=== PATIENT | female | born 1985 | race Two or more races ===

== ENCOUNTER → 2021-01-22 | Outpatient (CLI) | payer BC ==
[2021-01-22 13:01] LABS: Basophils # (auto) 0 10 ^3/uL (0-0.2); Basophils % (auto) 0.3 % (0.0-2.0); Eosinophils # (auto) 0 10 ^3/uL (0-0.8); Eosinophils % (auto) 0.1 % (0.0-7.0); Hematocrit 38.3 % (36.0-46.0); Hemoglobin 13.1 g/dL (12.2-16.2); Lymphocytes # (auto) 1.1 10 ^3/uL (0.4-5.4); Lymphocytes % (auto) 12.7 % (10.0-50.0); Mean Corpuscular Hemoglobin 30.6 pg (28.0-32.0); Mean Corpuscular Hgb Conc. 34.3 g/dL (32.0-36.0); Mean Corpuscular Volume 89.4 fL (80.0-100.0); Monocytes # (auto) 0.5 10 ^3/uL (0-1.3); Monocytes % (auto) 5.2 % (0.0-12.0); Neutrophils # (auto) 7.3 10 ^3/uL (1.6-8.6); Neutrophils % (auto) 81.7 % (37.0-80.0); Nucleated Red Blood Cells % 0.2 %; Platelet Count (auto) 315 10^3/uL (140-450); Red Blood Cells 4.29 10^6/uL (4.0-5.20); Red Cell Distribution Width 13.1 % (11.8-14.3); White Blood Cell 8.9 10^3/uL (4.4-10.8)
[2021-01-22 13:21] LABS: Urine Bacteria FEW /hpf (None Seen); Urine Blood TRACE /uL (Negative); Urine Mucus FEW (None Seen); Urine WBC 1 /hpf (0 - 5)
[2021-01-22 14:44] LABS: Alcohol, Urine < 3.0 mg/dL (0-10); Amphetamine Screen, Urine NEGATIVE (NEGATIVE); Barbiturate Scree,Urine NEGATIVE (NEGATIVE); Benzodiazephine Screen, Urine NEGATIVE (NEGATIVE); Cannabinoid Screen, Urine NEGATIVE (NEGATIVE); Cocaine Screen, Urine NEGATIVE (NEGATIVE); Opiate Scree,Urine NEGATIVE (NEGATIVE); Phencyclidine Screen, Urine NEGATIVE (NEGATIVE)
[2021-01-23 08:07] LABS: RPR Non Reactive (Non Reactive)
== END | disposition home or self-care (01) ==
LOC: LAB 11:36
PROVIDERS: ATTEND Specialist
DX: O09.91 Supervision of high risk pregnancy, unspecified, first trimester (principal); Z31.430 Encounter of female for testing for genetic disease carrier status for procreative management; Z20.2 Contact with and (suspected) exposure to infections with a predominantly sexual mode of transmission; Z3A.11 11 weeks gestation of pregnancy
CPT/HCPCS: 36415; 80307; 81001; 81220; 83036; 84112; 84144; 84702; 85025; 86592; 86703; 86762; 86850; 86900; 86901; 87086; 87340

== ENCOUNTER 2021-02-03 10:49 | Emergency (ER) | payer BC, MEDICAID ==
[~2021-02-03] VITALS: Ht 165.1 cm; Wt 67.1 kg
[2021-02-03 10:52] VITALS: BP 101/56
== END 2021-02-03 12:23 | disposition home or self-care (01) ==
LOC: ER 10:49
DX: O20.0 Threatened abortion (principal); N83.202 Unspecified ovarian cyst, left side
CPT/HCPCS: 76801; 81002

== ENCOUNTER 2021-06-16 10:58 | Observation (INO) | payer MEDICAID ==
[2021-06-16] MEDS ORDERED: LACTATED RINGER'S 1,000 ML IV ONE (11:45)
[2021-06-16] MEDS ORDERED: ONDANSETRON HCL 4 MG/2 ML VIAL IV PRN (12:00)
[2021-06-16 12:27] LABS: Basophils # (auto) 0 10 ^3/uL (0-0.2); Basophils % (auto) 0.2 % (0.0-2.0); Eosinophils # (auto) 0 10 ^3/uL (0-0.8); Eosinophils % (auto) 0.3 % (0.0-7.0); Hematocrit 28.5 % (36.0-46.0); Hemoglobin 9.7 g/dL (12.2-16.2); Lymphocytes # (auto) 1.3 10 ^3/uL (0.4-5.4); Lymphocytes % (auto) 12.6 % (10.0-50.0); Mean Corpuscular Hemoglobin 29.1 pg (28.0-32.0); Mean Corpuscular Hgb Conc. 33.9 g/dL (32.0-36.0); Mean Corpuscular Volume 85.9 fL (80.0-100.0); Monocytes # (auto) 0.8 10 ^3/uL (0-1.3); Monocytes % (auto) 7.9 % (0.0-12.0); Neutrophils # (auto) 8.2 10 ^3/uL (1.6-8.6); Nucleated Red Blood Cells % 0.1 %; Red Blood Cells 3.32 10^6/uL (4.0-5.20); Red Cell Distribution Width 13.7 % (11.8-14.3); White Blood Cell 10.4 10^3/uL (4.4-10.8)
[2021-06-16 12:56] LABS: Albumin 2.3 g/dL (3.4-5.0); Calcium 8.8 mg/dL (8.5-10.1); Potassium 3.9 mmol/L (3.5-5.1)
[2021-06-16 12:58] LABS: BUN/Creatinine Ratio 18.2; Bilirubin, Total 0.2 mg/dL (0.2-1.0); Total Protein 6.5 g/dL (6.4-8.2)
== END 2021-06-16 13:21 | disposition home or self-care (01) ==
LOC: LDRP 10:58
PROVIDERS: ADMIT Obstetrics & Gynecology; ATTEND Obstetrics & Gynecology
DX: O36.8130 Decreased fetal movements, third trimester, not applicable or unspecified (principal); O21.2 Late vomiting of pregnancy; O99.891 Other specified diseases and conditions complicating pregnancy; M54.5 Low back pain; O26.893 Other specified pregnancy related conditions, third trimester; O62.9 Abnormality of forces of labor, unspecified; R51.9 Headache, unspecified; Z3A.32 32 weeks gestation of pregnancy
CPT/HCPCS: 36415; 59025; 80053; 81002; 85025; 87426; 94760; 96361; 96374; G0378; G0379; J2405; 96360

== ENCOUNTER 2021-07-11 12:30 | Observation (INO) | payer MEDICAID ==
[2021-07-11] MEDS ORDERED: LACTATED RINGER'S 1,000 ML IV ONE (14:45)
[2021-07-11] MEDS ORDERED: ONDANSETRON HCL 4 MG/2 ML VIAL IV ONE (14:45)
[2021-07-11 15:17] LABS: Albumin 2.6 g/dL (3.4-5.0); Calcium 8.9 mg/dL (8.5-10.1)
[2021-07-11 15:20] LABS: Bilirubin, Total 0.2 mg/dL (0.2-1.0); Total Protein 7.2 g/dL (6.4-8.2)
[2021-07-11 15:23] LABS: Basophils # (auto) 0 10 ^3/uL (0-0.2); Basophils % (auto) 0.3 % (0.0-2.0); Eosinophils # (auto) 0 10 ^3/uL (0-0.8); Eosinophils % (auto) 0.1 % (0.0-7.0); Hematocrit 30.8 % (36.0-46.0); Hemoglobin 10.2 g/dL (12.2-16.2); Lymphocytes # (auto) 1.4 10 ^3/uL (0.4-5.4); Lymphocytes % (auto) 13.3 % (10.0-50.0); Mean Corpuscular Hemoglobin 27.6 pg (28.0-32.0); Mean Corpuscular Hgb Conc. 33.1 g/dL (32.0-36.0); Mean Corpuscular Volume 83.5 fL (80.0-100.0); Monocytes # (auto) 0.7 10 ^3/uL (0-1.3); Neutrophils # (auto) 8.2 10 ^3/uL (1.6-8.6); Neutrophils % (auto) 79.3 % (37.0-80.0); Red Blood Cells 3.68 10^6/uL (4.0-5.20); Red Cell Distribution Width 14.8 % (11.8-14.3); White Blood Cell 10.3 10^3/uL (4.4-10.8)
[2021-07-11] MEDS ORDERED: FERR-20 PO (16:37)
[2021-07-11] MEDS ORDERED: FAMO20TA10 PO (16:37)
[2021-07-11] MEDS ORDERED: PREN-96 PO (16:37)
[2021-07-12] MEDS ORDERED: ALUM1SUS16 PO (14:55)
== END 2021-07-11 16:50 | disposition home or self-care (01) ==
LOC: LDRP 12:30
PROVIDERS: ADMIT Obstetrics & Gynecology; ATTEND Obstetrics & Gynecology
DX: O21.2 Late vomiting of pregnancy (principal); Z20.822 Contact with and (suspected) exposure to COVID-19; O62.9 Abnormality of forces of labor, unspecified; O26.893 Other specified pregnancy related conditions, third trimester; R19.7 Diarrhea, unspecified; R51.9 Headache, unspecified; Z3A.36 36 weeks gestation of pregnancy
CPT/HCPCS: 36415; 59025; 80053; 81002; 85025; 87426; 96361; 96374; G0378; J2405; 96360

== ENCOUNTER 2021-07-12 13:10 | Observation (INO) | payer MEDICAID ==
[~2021-07-12 13:10] MED LIST: FAMO20TA10 PO; FERR-20 PO; PREN-96 PO
[2021-07-12] MEDS ORDERED: ALUM1SUS16 PO (14:55)
== END 2021-07-12 15:17 | disposition home or self-care (01) ==
LOC: LDRP 13:10
PROVIDERS: ADMIT Obstetrics & Gynecology; ATTEND Obstetrics & Gynecology
DX: O62.9 Abnormality of forces of labor, unspecified (principal); O21.2 Late vomiting of pregnancy; Z3A.36 36 weeks gestation of pregnancy
CPT/HCPCS: 59025; 76818; 81002; 94760; G0378

== ENCOUNTER 2021-07-24 10:12 | Observation (INO) | payer MEDICAID ==
[~2021-07-24 10:12] MED LIST changes: +ALUM1SUS16 PO
== END 2021-07-24 11:43 | disposition home or self-care (01) ==
LOC: LDRP 10:12
PROVIDERS: ADMIT Obstetrics & Gynecology; ATTEND Obstetrics & Gynecology
DX: O62.9 Abnormality of forces of labor, unspecified (principal); O26.893 Other specified pregnancy related conditions, third trimester; R10.9 Unspecified abdominal pain; O21.2 Late vomiting of pregnancy; Z3A.38 38 weeks gestation of pregnancy
CPT/HCPCS: 59025; 81002; 94760; G0378

== ENCOUNTER 2021-07-25 22:19 | Observation (INO) | payer MEDICAID ==
[~2021-07-25] VITALS: Ht 165.1 cm; Wt 75.7 kg
== END 2021-07-25 23:25 | disposition home or self-care (01) ==
LOC: LDRP 22:19
PROVIDERS: ADMIT Obstetrics & Gynecology; ATTEND Obstetrics & Gynecology
DX: O62.9 Abnormality of forces of labor, unspecified (principal); Z3A.38 38 weeks gestation of pregnancy
CPT/HCPCS: 59025; 81002; G0378; G0379

== ENCOUNTER 2021-07-26 04:52 | Inpatient (IN) | payer MEDICAID ==
[~2021-07-26] VITALS: Ht 165.1 cm; Wt 75.7 kg
[2021-07-26] MEDS ORDERED: LACT. RINGERS/OXYTOCIN 20UNITS 500 ML IV ONE ×2 (06:00→22:30)
[2021-07-26] MEDS ORDERED: PROMETHAZINE HCL 25 MG/ML 1ML IV PRN (06:00)
[2021-07-26] MEDS ORDERED: DERMOPLAST 60ML BOTTLE TOP PRN (06:00)
[2021-07-26] MEDS ORDERED: TERBUTALINE SULFATE 1 MG/ML 1ML VIAL SC PRN (06:00)
[2021-07-26] MEDS ORDERED: LACT. RINGERS/OXYTOCIN 20UNITS 1,000 ML IV SCH (06:00)
[2021-07-26] MEDS ORDERED: LIDOCAINE 2%HCL (LOCAL ANESTH.) INJ 20ML MDV IJ PRN (06:00)
[2021-07-26] MEDS ORDERED: PHISODERM TOP SOLN 240ML BTL TOP PRN (06:00)
[2021-07-26] MEDS ORDERED: BUTORPHANOL TARTRATE 2 MG/1 ML VIAL IV PRN ×2 (06:00)
[2021-07-26] MEDS ORDERED: WITCH HAZEL-GLYCERIN PAD TOP PRN (06:00)
[2021-07-26] MEDS: LACTATED RINGER'S 1,000 ML IV SCH ×2 (07:12→20:11)
[2021-07-26 07:27] LABS: Basophils # (auto) 0 10 ^3/uL (0-0.2); Basophils % (auto) 0.2 % (0.0-2.0); Eosinophils # (auto) 0 10 ^3/uL (0-0.8); Hematocrit 32.7 % (36.0-46.0); Hemoglobin 10.6 g/dL (12.2-16.2); Lymphocytes # (auto) 0.6 10 ^3/uL (0.4-5.4); Lymphocytes % (auto) 4.1 % (10.0-50.0); Mean Corpuscular Hemoglobin 27.1 pg (28.0-32.0); Mean Corpuscular Hgb Conc. 32.5 g/dL (32.0-36.0); Mean Corpuscular Volume 83.4 fL (80.0-100.0); Monocytes # (auto) 0.3 10 ^3/uL (0-1.3); Monocytes % (auto) 2.2 % (0.0-12.0); Neutrophils # (auto) 14.2 10 ^3/uL (1.6-8.6); Neutrophils % (auto) 93.5 % (37.0-80.0); Nucleated Red Blood Cells % 0.1 %; Red Blood Cells 3.92 10^6/uL (4.0-5.20); Red Cell Distribution Width 15.9 % (11.8-14.3); White Blood Cell 15.1 10^3/uL (4.4-10.8)
[2021-07-26 07:30] LABS: Urine Bacteria NONE SEEN /hpf (None Seen); Urine Blood 3+ /uL (Negative); Urine Mucus FEW (None Seen); Urine Specific Gravity 1.019 (1.001-1.035)
[2021-07-26 07:45] LABS: INR 0.97 (0.9-1.15); Partial Thromboplastin Time 26.4 sec (23.6-33.0)
[2021-07-26 07:48] LABS: Albumin 2.6 g/dL (3.4-5.0); Calcium 8.8 mg/dL (8.5-10.1); Potassium 3.7 mmol/L (3.5-5.1)
[2021-07-26 07:52] LABS: Urine WBC 2 /hpf (0 - 5)
[2021-07-26 07:53] LABS: Bilirubin, Total 0.3 mg/dL (0.2-1.0); Total Protein 6.9 g/dL (6.4-8.2)
[2021-07-26 07:54] LABS: Alcohol, Urine < 3.0 mg/dL (0-10); Amphetamine Screen, Urine NEGATIVE (NEGATIVE); Barbiturate Scree,Urine NEGATIVE (NEGATIVE); Benzodiazephine Screen, Urine NEGATIVE (NEGATIVE); Cannabinoid Screen, Urine NEGATIVE (NEGATIVE); Cocaine Screen, Urine NEGATIVE (NEGATIVE); Opiate Scree,Urine NEGATIVE (NEGATIVE); Phencyclidine Screen, Urine NEGATIVE (NEGATIVE)
[2021-07-26] MEDS ORDERED: LACTATED RINGER'S 1,000 ML IV ONE (08:30)
[2021-07-26] MEDS ORDERED: NALOXONE HCL 0.4 MG/ML VIAL IV ONE (08:30)
[2021-07-26] MEDS ORDERED: ROPIVACAINE HCL 200 ML EPI SCH (08:30)
[2021-07-26] MEDS ORDERED: LIDOCAINE HCL 2 %PF INJ 10ML AMP IJ ONE (08:30)
[2021-07-26] MEDS ORDERED: ePHEDrine SULFATE 50 MG/ML AMP IV ONE (08:30)
[2021-07-26] MEDS ORDERED: fentaNYL CITRATE 100 MCG/2 ML VL IV ONE (08:30)
[2021-07-26] MEDS ORDERED: ceFAZolin 1GM/50ML 50 ML IV SCH (14:00)
[2021-07-26] MEDS ORDERED: ACETAMINOPHEN 325 MG TAB PO PRN (22:45)
[2021-07-26] MEDS ORDERED: IBUPROFEN 800 MG TAB PO PRN (22:45)
[2021-07-26] MEDS: IBUPROFEN 600 MG TAB PO PRN (23:09)
[2021-07-27 03:20] VITALS: BP 98/59
[2021-07-27 06:06] LABS: RPR Non Reactive (Non Reactive)
[2021-07-27 07:00] VITALS: BP 97/55
[2021-07-27] MEDS: IBUPROFEN 600 MG TAB PO PRN ×2 (07:37→18:58)
[2021-07-27 11:00] VITALS: BP 96/57
[2021-07-27 15:00] VITALS: BP 100/60
[2021-07-27] MEDS ORDERED: CALCIUM CARB 500 MG CHEW TAB PO ONE (17:00)
[2021-07-27 19:00] VITALS: BP 114/71
[2021-07-27 23:00] VITALS: BP 119/68
[2021-07-28 03:00] VITALS: BP 111/76
[2021-07-28] MEDS ORDERED: CALCIUM CARB 500 MG CHEW TAB PO ONE (04:45)
[2021-07-28 07:30] VITALS: BP 110/78
[2021-07-28 11:00] VITALS: BP 107/68
[2021-07-28 18:40] VITALS: BP 111/63
[2021-07-28 19:50] VITALS: BP 102/58
== END 2021-07-28 20:10 | disposition home or self-care (01) | DRG 560 ==
LOC: LDRP 04:52 → OBSVTOIN 05:54 → LDRP 06:16
PROVIDERS: ADMIT Obstetrics & Gynecology; ATTEND Obstetrics & Gynecology
PROC: 10E0XZZ Delivery of Products of Conception, External Approach (ICD-10-PCS; principal; 2021-07-26)
PROC: 3E0R3BZ Introduction of Anesthetic Agent into Spinal Canal, Percutaneous Approach (ICD-10-PCS; 2021-07-26)
PROC: 00HU33Z Insertion of Infusion Device into Spinal Canal, Percutaneous Approach (ICD-10-PCS; 2021-07-26)
PROC: 0W8NXZZ Division of Female Perineum, External Approach (ICD-10-PCS; 2021-07-26)
DX: O69.81X0 Labor and delivery complicated by cord around neck, without compression, not applicable or unspecified (principal); Z37.0 Single live birth; O76 Abnormality in fetal heart rate and rhythm complicating labor and delivery; Z20.822 Contact with and (suspected) exposure to COVID-19; Z3A.38 38 weeks gestation of pregnancy
CPT/HCPCS: 36415; 59025; 59409; 62282; 80053; 80307; 81001; 81002; 84112; 85025; 85610; 85730; 86592; 86850; 86900; 86901; 87426; 94760; 94762; 96360; 96361; 96365; 96366; 96374; 96375; G0378; J0690; J2590

== ENCOUNTER 2022-01-21 06:29 | Emergency (ER) | payer MEDICAID ==
[~2022-01-21] VITALS: Ht 165.1 cm; Wt 72.6 kg
[2022-01-21 07:10] LABS: Basophils # (auto) 0.1 10 ^3/uL (0-0.2); Basophils % (auto) 0.8 % (0.0-2.0); Eosinophils # (auto) 0 10 ^3/uL (0-0.8); Eosinophils % (auto) 0.4 % (0.0-7.0); Lymphocytes # (auto) 1.3 10 ^3/uL (0.4-5.4); Lymphocytes % (auto) 19.1 % (10.0-50.0); Mean Corpuscular Hemoglobin 27.6 pg (28.0-32.0); Mean Corpuscular Hgb Conc. 33.3 g/dL (32.0-36.0); Mean Corpuscular Volume 82.8 fL (80.0-100.0); Monocytes # (auto) 0.3 10 ^3/uL (0-1.3); Monocytes % (auto) 4.7 % (0.0-12.0); Neutrophils # (auto) 4.9 10 ^3/uL (1.6-8.6); Red Blood Cells 4.34 10^6/uL (4.0-5.20); Red Cell Distribution Width 13.9 % (11.8-14.3); White Blood Cell 6.6 10^3/uL (4.4-10.8)
[2022-01-21 07:29] LABS: Albumin 3.8 g/dL (3.4-5.0); Calcium 8.8 mg/dL (8.5-10.1); Potassium 3.7 mmol/L (3.5-5.1)
[2022-01-21 07:31] LABS: Bilirubin, Total 0.2 mg/dL (0.2-1.0); Total Protein 7.8 g/dL (6.4-8.2)
[2022-01-21 07:51] LABS: Urine Bacteria NONE SEEN /hpf (None Seen); Urine Blood Negative /uL (Negative); Urine Specific Gravity 1.004 (1.001-1.035); Urine WBC 13 /hpf (0 - 5)
[2022-01-21 10:19] VITALS: BP 113/75
== END 2022-01-21 11:42 | disposition left against medical advice (07) ==
LOC: EDUNIT# 06:29 → ER 06:29
DX: K80.80 Other cholelithiasis without obstruction (principal); Z79.899 Other long term (current) drug therapy; Z91.018 Allergy to other foods
CPT/HCPCS: 36415; 74176; 80053; 81001; 83690; 84702; 85025

== ENCOUNTER 2023-09-03 17:31 | Inpatient (IN) | payer SELFPAY ==
[~2023-09-03] VITALS: Ht 165.1 cm; Wt 65.4 kg
[~2023-09-03 17:31] MED LIST changes: -FERR-20 PO; +FERR325T24 PO
[2023-09-03] MEDS ORDERED: ACETAMINOPHEN 500 MG TAB PO ONE ×2 (18:00→21:45)
[2023-09-03 18:08] VITALS: PULSE 120; RESP 16; O2SAT 100
[2023-09-03 18:08] LABS: Basophils # (auto) 0 10 ^3/uL (0-0.2); Basophils % (auto) 0.3 % (0.0-2.0); Eosinophils # (auto) 0 10 ^3/uL (0-0.8); Hematocrit 37.4 % (36.0-46.0); Hemoglobin 12.5 g/dL (12.2-16.2); Lymphocytes # (auto) 0.8 10 ^3/uL (0.4-5.4); Lymphocytes % (auto) 7.7 % (10.0-50.0); Mean Corpuscular Hemoglobin 27.8 pg (28.0-32.0); Mean Corpuscular Hgb Conc. 33.4 g/dL (32.0-36.0); Mean Corpuscular Volume 83.4 fL (80.0-100.0); Monocytes # (auto) 0.7 10 ^3/uL (0-1.3); Monocytes % (auto) 6.6 % (0.0-12.0); Neutrophils % (auto) 85.4 % (37.0-80.0); Red Blood Cells 4.49 10^6/uL (4.0-5.20); Red Cell Distribution Width 15.2 % (11.8-14.3); White Blood Cell 10.6 10^3/uL (4.4-10.8)
[2023-09-03] MEDS ORDERED: SODIUM CHLORIDE 0.9% 1,000 ML IV ONE ×2 (18:15→18:30)
[2023-09-03 18:24] LABS: INR 1.14 (0.9-1.15); Partial Thromboplastin Time 31.7 SEC (24.5-34.5); Prothrombin Time 11.9 sec (9.3-11.8)
[2023-09-03 18:30] LABS: Alanine Aminotransferase 16 U/L (7-40); Albumin 4.9 g/dL (3.2-4.8); Alkaline Phosphatase 67 U/L (46-116); Anion Gap 9 (5-15); Aspartate Aminotransferase 16 U/L (13-40); BUN/Creatinine Ratio 15.1 (10.0-20.0); Blood Urea Nitrogen 13 mg/dL (9-23); Calcium 9.7 mg/dL (8.5-10.1); Carbon Dioxide 25 mmol/L (20-30); Chloride 105 mmol/L (98-107); Glucose 98 mg/dL (74-106); Potassium 3.7 mmol/L (3.5-5.1); Sodium 139 mmol/L (136-145)
[2023-09-03] MEDS ORDERED: cefTRIAXone 1GM/50ML D5W 50 ML IV ONE (18:30)
[2023-09-03] MEDS ORDERED: DexAMETHasone SOD PHOS 10MG/1ML VIAL INJ IV ONE (18:30)
[2023-09-03 18:31] LABS: Bilirubin, Total 0.4 mg/dL (0.2-1.0); Total Protein 7.9 g/dL (5.7-8.2)
[2023-09-03 20:00] VITALS: PULSE 111; RESP 13; O2SAT 96
[2023-09-03 22:36] LABS: Urine WBC None Seen /hpf (0 - 5)
[2023-09-03 22:57] LABS: COVID19 ANTIGEN SOFIA FIA POSITIVE (NEGATIVE)
[2023-09-03 23:04] LABS: Urine Bacteria FEW /hpf (None Seen); Urine Blood Negative /uL (Negative); Urine Clarity Clear (Clear); Urine Color Colorless (Yellow); Urine Protein, UAD Negative (Negative); Urine Specific Gravity 1.009 (1.001-1.035); Urine Urobilinogen Normal (Negative)
[2023-09-04] MEDS ORDERED: NITROGLYCERIN 0.4 MG SL TAB SL PRN (01:00)
[2023-09-04] MEDS ORDERED: ACETAMINOPHEN 500 MG TAB PO PRN (01:00)
[2023-09-04] MEDS ORDERED: MORPHINE SULFATE INJ 2 MG/ml SYRG IV PRN (01:00)
[2023-09-04] MEDS ORDERED: TEMAZEPAM 15 MG CAP PO PRN (01:00)
[2023-09-04] MEDS ORDERED: ALBUTEROL MEDNEB 2.5 mg/3ml NEB NEB PRN (01:00)
[2023-09-04] MEDS ORDERED: ONDANSETRON HCL 4 MG/2 ML VIAL IV PRN (01:00)
[2023-09-04 01:05] VITALS: BP 116/83; PULSE 90; RESP 20; TEMP 98.6; O2SAT 97
[2023-09-04 06:56] VITALS: O2SAT 97
[2023-09-04 08:00] VITALS: PULSE 80; RESP 14; O2SAT 98
[2023-09-04] MEDS ORDERED: CHOLECALCIFEROL (VITD3) 2,000 UNIT CAP/TAB PO SCH (10:00)
[2023-09-04] MEDS ORDERED: ASCORBIC ACID 1,000 MG TAB PO SCH (10:00)
[2023-09-04] MEDS ORDERED: AZITHROMYCIN 500MG/ 250ML 250 ML IV SCH (10:00)
[2023-09-04] MEDS ORDERED: ZINC SULFATE 220mg CAP or TAB PO SCH (10:00)
[2023-09-04 12:00] VITALS: BP 114/68; PULSE 87; RESP 14; TEMP 99.4; O2SAT 96
[2023-09-04] MEDS ORDERED: ALBUTEROL SULF HFA 90MCG INH 200DOSE IN SCH (14:00)
== END 2023-09-04 12:05 | disposition home or self-care (01) | DRG 179 ==
LOC: ER 17:31 → TELE 09-04 00:55
PROVIDERS: ADMIT Internal Medicine Pulmonary Disease; ATTEND Student in an Organized Health Care Education/Training Program
DX: U07.1 COVID-19 (principal); R00.0 Tachycardia, unspecified
CPT/HCPCS: 36415; 71045; 80053; 81001; 82728; 83605; 83735; 83880; 84443; 84484; 84702; 85025; 85379; 85610; 85730; 86141; 87040; 87426; 93005; G0378; J0696; J1100

== ENCOUNTER 2024-02-13 16:19 | Emergency (ER) | payer MEDICAID, SELFPAY ==
[~2024-02-13] VITALS: Ht 165.1 cm; Wt 64.9 kg
[2024-02-13 16:38] LABS: Urine Bacteria None Seen /hpf (None Seen)
[2024-02-13 17:01] LABS: Urine Blood 2+ /uL (Negative); Urine Clarity Clear (Clear); Urine Color Colorless (Yellow); Urine Protein, UAD Negative (Negative); Urine Specific Gravity 1.002 (1.001-1.035); Urine Urobilinogen Normal (Negative); Urine WBC <1 /hpf (0 - 5); Urine pH 5.5 (5.0-9.0)
[2024-02-13] MEDS: MECLIZINE HCL 25 MG TAB PO ONE (17:01)
[2024-02-13] MEDS: ONDANSETRON ODT 4 MG TAB PO ONE (17:01)
[2024-02-13 17:02] VITALS: BP 122/67; PULSE 93; RESP 18; TEMP 98.6; O2SAT 98
[2024-02-13 17:16] LABS: Basophils # (auto) 0 10 ^3/uL (0-0.2); Basophils % (auto) 0.8 % (0.0-2.0); Eosinophils # (auto) 0 10 ^3/uL (0-0.8); Eosinophils % (auto) 0.8 % (0.0-7.0); Hematocrit 37.2 % (36.0-46.0); Hemoglobin 12.3 g/dL (12.2-16.2); Lymphocytes # (auto) 1.3 10 ^3/uL (0.4-5.4); Lymphocytes % (auto) 24.1 % (10.0-50.0); Mean Corpuscular Hemoglobin 28.2 pg (28.0-32.0); Mean Corpuscular Hgb Conc. 33.2 g/dL (32.0-36.0); Mean Corpuscular Volume 85.1 fL (80.0-100.0); Monocytes # (auto) 0.5 10 ^3/uL (0-1.3); Neutrophils # (auto) 3.5 10 ^3/uL (1.6-8.6); Neutrophils % (auto) 64.3 % (37.0-80.0); Nucleated Red Blood Cells % 0.1 %; Red Blood Cells 4.37 10^6/uL (4.0-5.20); Red Cell Distribution Width 14.9 % (11.8-14.3); White Blood Cell 5.5 10^3/uL (4.4-10.8)
[2024-02-13 17:35] LABS: Alanine Aminotransferase 12 U/L (7-40); Albumin 4.6 g/dL (3.2-4.8); Alkaline Phosphatase 58 U/L (46-116); Anion Gap 9 (5-15); Aspartate Aminotransferase 11 U/L (13-40); Blood Urea Nitrogen 8 mg/dL (9-23); Calcium 9.8 mg/dL (8.7-10.4); Carbon Dioxide 25 mmol/L (20-30); Chloride 105 mmol/L (98-107); Glucose 91 mg/dL (74-106); Lipase 38 U/L (12-53); Potassium 3.4 mmol/L (3.5-5.1); Sodium 139 mmol/L (136-145)
[2024-02-13 17:36] LABS: Bilirubin, Total 0.4 mg/dL (0.2-1.0)
[2024-02-13] MEDS ORDERED: ZOFR4T PO (18:25)
[2024-02-13] MEDS ORDERED: DICY10CA PO (18:25)
[2024-02-13] MEDS ORDERED: MECL1TAB42 PO (18:25)
== END 2024-02-13 18:31 | disposition home or self-care (01) ==
LOC: ER 16:19
DX: K52.9 Noninfective gastroenteritis and colitis, unspecified (principal); Z91.018 Allergy to other foods
CPT/HCPCS: 36415; 74176; 80053; 81001; 81025; 83690; 85025; 99284; J8597; Q0162

== ENCOUNTER 2024-05-14 17:37 | Inpatient (IN) | payer SELFPAY ==
[~2024-05-14] VITALS: Ht 165.1 cm; Wt 69.7 kg
[~2024-05-14 17:37] MED LIST changes: +DICY10CA PO; +MECL1TAB42 PO; +ZOFR4T PO
[2024-05-14 18:32] LABS: Alanine Aminotransferase 19 U/L (7-40); Albumin 4.7 g/dL (3.2-4.8); Alkaline Phosphatase 59 U/L (46-116); Anion Gap 10 (5-15); Aspartate Aminotransferase 10 U/L (13-40); BUN/Creatinine Ratio 9.8 (10.0-20.0); Blood Urea Nitrogen 8 mg/dL (9-23); Calcium 10.1 mg/dL (8.7-10.4); Carbon Dioxide 24 mmol/L (20-30); Chloride 105 mmol/L (98-107); Glucose 148 mg/dL (74-106); Magnesium 1.6 mg/dL (1.6-2.6); Sodium 139 mmol/L (136-145)
[2024-05-14 18:33] LABS: Bilirubin, Total 0.4 mg/dL (0.2-1.0); Total Protein 7.5 g/dL (5.7-8.2)
[2024-05-14 18:40] LABS: Basophils # (auto) 0 10 ^3/uL (0-0.2); Basophils % (auto) 0.3 % (0.0-2.0); Eosinophils # (auto) 0 10 ^3/uL (0-0.8); Eosinophils % (auto) 0.2 % (0.0-7.0); Hematocrit 37.3 % (36.0-46.0); Hemoglobin 12.6 g/dL (12.2-16.2); Lymphocytes # (auto) 1.7 10 ^3/uL (0.4-5.4); Lymphocytes % (auto) 25.1 % (10.0-50.0); Mean Corpuscular Hemoglobin 28.6 pg (28.0-32.0); Mean Corpuscular Hgb Conc. 33.9 g/dL (32.0-36.0); Mean Corpuscular Volume 84.3 fL (80.0-100.0); Monocytes # (auto) 0.4 10 ^3/uL (0-1.3); Monocytes % (auto) 6.6 % (0.0-12.0); Neutrophils # (auto) 4.5 10 ^3/uL (1.6-8.6); Neutrophils % (auto) 67.8 % (37.0-80.0); Nucleated Red Blood Cells % 0.2 %; Red Blood Cells 4.42 10^6/uL (4.0-5.20); Red Cell Distribution Width 14.2 % (11.8-14.3); White Blood Cell 6.7 10^3/uL (4.4-10.8)
[2024-05-14] MEDS: SODIUM CHLORIDE 0.9% 1,000 ML IV ONE (19:20)
[2024-05-14] MEDS: ONDANSETRON HCL 4 MG/2 ML VIAL IV ONE (20:00)
[2024-05-14] MEDS: KETOROLAC TROMETH 30 MG/ML 1ML VIAL IV ONE (20:01)
[2024-05-14] MEDS: PANTOPRAZOLE 40 MG/10 ML VIAL INJ IV ONE (20:05)
[2024-05-14 20:20] LABS: Urine Bacteria FEW /hpf (None Seen); Urine Blood TRACE /uL (Negative); Urine Clarity Clear (Clear); Urine Color Colorless (Yellow); Urine Protein, UAD Negative (Negative); Urine Specific Gravity 1.004 (1.001-1.035); Urine Urobilinogen Normal (Negative); Urine WBC 1 /hpf (0 - 5)
[2024-05-14] MEDS: METOCLOPRAMIDE HCL 5MG/ml INJ 2ml VIAL IV ONE ×2 (21:03→21:24)
[2024-05-14] MEDS: IOHEXOL 350 MG/ML 100ML IJ ONE (22:11)
[2024-05-15] MEDS ORDERED: ONDANSETRON HCL 4 MG/2 ML VIAL IV PRN (02:15)
[2024-05-15] MEDS ORDERED: HYDROcodone-ACET 5/325MG TAB PO PRN (02:15)
[2024-05-15] MEDS ORDERED: HEPARIN DRIP/D5W 100UNITS/ML 250 ML IV SCH (02:30)
[2024-05-15] MEDS ORDERED: MORPHINE SULFATE INJ 2 MG/ml SYRG IV PRN (03:15)
[2024-05-15] MEDS ORDERED: NITROGLYCERIN 0.4 MG SL TAB SL PRN (03:15)
[2024-05-15 04:18] LABS: Basophils # (auto) 0 10 ^3/uL (0-0.2); Basophils % (auto) 0.7 % (0.0-2.0); Eosinophils # (auto) 0 10 ^3/uL (0-0.8); Eosinophils % (auto) 0.2 % (0.0-7.0); Hematocrit 35.7 % (36.0-46.0); Hemoglobin 12.3 g/dL (12.2-16.2); Lymphocytes # (auto) 1.5 10 ^3/uL (0.4-5.4); Mean Corpuscular Hemoglobin 29.3 pg (28.0-32.0); Mean Corpuscular Hgb Conc. 34.6 g/dL (32.0-36.0); Mean Corpuscular Volume 84.7 fL (80.0-100.0); Monocytes # (auto) 0.7 10 ^3/uL (0-1.3); Monocytes % (auto) 11.6 % (0.0-12.0); Neutrophils # (auto) 3.9 10 ^3/uL (1.6-8.6); Neutrophils % (auto) 63.5 % (37.0-80.0); Red Blood Cells 4.22 10^6/uL (4.0-5.20); Red Cell Distribution Width 13.8 % (11.8-14.3); White Blood Cell 6.1 10^3/uL (4.4-10.8)
[2024-05-15 04:31] LABS: Alanine Aminotransferase 17 U/L (7-40); Albumin 4.5 g/dL (3.2-4.8); Alkaline Phosphatase 54 U/L (46-116); Anion Gap 8 (5-15); Aspartate Aminotransferase 11 U/L (13-40); BUN/Creatinine Ratio 8.5 (10.0-20.0); Bilirubin, Total 0.5 mg/dL (0.2-1.0); Blood Urea Nitrogen 6 mg/dL (9-23); Calcium 9.4 mg/dL (8.7-10.4); Carbon Dioxide 26 mmol/L (20-30); Chloride 104 mmol/L (98-107); Glucose 100 mg/dL (74-106); Potassium 3.2 mmol/L (3.5-5.1); Sodium 138 mmol/L (136-145); Total Protein 7.7 g/dL (5.7-8.2)
[2024-05-15 04:39] LABS: INR 1.1 (0.9-1.15); Partial Thromboplastin Time 28.8 SEC (24.5-34.5); Prothrombin Time 11.6 sec (9.3-11.8)
[2024-05-15 06:00] VITALS: PULSE 76; RESP 13; O2SAT 100
[2024-05-15] MEDS: POTASSIUM CHL 20MEQ/100ML 100 ML IV SCH (06:11)
[2024-05-15] MEDS: HEPARIN SODIUM (PORCINE) 5000 UNITS/ML 1ML VIAL IV ONE (07:06)
[2024-05-15] MEDS: HEPARIN DRIP/D5W 100UNITS/ML 250 ML IV SCH ×2 (07:13→15:18)
[2024-05-15 07:44] VITALS: PULSE 62; RESP 16; O2SAT 96
[2024-05-15] MEDS: PANTOPRAZOLE 40 MG/10 ML VIAL INJ IV SCH (08:57)
[2024-05-15] MEDS: POTASSIUM CHL 20MEQ/100ML 100 ML IV ONE (09:01)
[2024-05-15] MEDS: SODIUM CHLORIDE 0.9% 1,000 ML IV SCH (09:02)
[2024-05-15 13:48] LABS: INR 1.17 (0.9-1.15); Prothrombin Time 12.3 sec (9.3-11.8)
[2024-05-15 14:00] LABS: Partial Thromboplastin Time > 139.0 SEC (24.5-34.5)
[2024-05-15 16:25] VITALS: BP 126/79; PULSE 74; PULSE 95; RESP 18; RESP 20; TEMP 98.4; O2SAT 99
[2024-05-15 16:43] VITALS: BP 126/79; PULSE 74; RESP 20; TEMP 98.3; O2SAT 99
[2024-05-15] MEDS: ACETAMINOPHEN 325 MG TAB PO PRN (18:41)
[2024-05-15 20:00] VITALS: PULSE 79
[2024-05-15 21:00] VITALS: BP 125/78; PULSE 77; RESP 19; TEMP 97.5; O2SAT 98
[2024-05-15 21:57] LABS: INR 1.16 (0.9-1.15); Prothrombin Time 12.2 sec (9.3-11.8)
[2024-05-15 22:07] LABS: Partial Thromboplastin Time 78.9 SEC (24.5-34.5)
[2024-05-16] VITALS (8 sets, daily range): BP systolic 118–130; BP diastolic 69–76; PULSE 16–90; RESP 18–20; TEMP 97.5–98.6; O2SAT 97–99
[2024-05-16 06:07] LABS: Basophils # (auto) 0 10 ^3/uL (0-0.2); Basophils % (auto) 1.1 % (0.0-2.0); Eosinophils # (auto) 0.1 10 ^3/uL (0-0.8); Eosinophils % (auto) 1.5 % (0.0-7.0); Hematocrit 34.5 % (36.0-46.0); Hemoglobin 11.9 g/dL (12.2-16.2); Lymphocytes # (auto) 1.3 10 ^3/uL (0.4-5.4); Lymphocytes % (auto) 32.3 % (10.0-50.0); Mean Corpuscular Hemoglobin 29.4 pg (28.0-32.0); Mean Corpuscular Hgb Conc. 34.4 g/dL (32.0-36.0); Mean Corpuscular Volume 85.5 fL (80.0-100.0); Monocytes # (auto) 0.5 10 ^3/uL (0-1.3); Monocytes % (auto) 13.6 % (0.0-12.0); Neutrophils % (auto) 51.5 % (37.0-80.0); Nucleated Red Blood Cells % 0.1 %; Red Blood Cells 4.04 10^6/uL (4.0-5.20); White Blood Cell 3.9 10^3/uL (4.4-10.8)
[2024-05-16 06:22] LABS: Alanine Aminotransferase 13 U/L (7-40); Alkaline Phosphatase 46 U/L (46-116); Anion Gap 9 (5-15); BUN/Creatinine Ratio 7.7 (10.0-20.0); Blood Urea Nitrogen 5 mg/dL (9-23); Carbon Dioxide 25 mmol/L (20-30); Chloride 105 mmol/L (98-107); Glucose 81 mg/dL (74-106); Potassium 3.3 mmol/L (3.5-5.1); Sodium 139 mmol/L (136-145)
[2024-05-16 06:24] LABS: Albumin 3.8 g/dL (3.2-4.8); Aspartate Aminotransferase 9 U/L (13-40); Bilirubin, Total 0.5 mg/dL (0.2-1.0); Total Protein 6.6 g/dL (5.7-8.2)
[2024-05-16 06:33] LABS: INR 1.15 (0.9-1.15); Prothrombin Time 12.1 sec (9.3-11.8)
[2024-05-16 06:34] LABS: Partial Thromboplastin Time 85.5 SEC (24.5-34.5)
[2024-05-16] MEDS: HEPARIN DRIP/D5W 100UNITS/ML 250 ML IV SCH ×2 (06:55→15:05)
[2024-05-16] MEDS: POTASSIUM CHL 20 Meq TABLET PO ONE (12:28)
[2024-05-16 14:02] LABS: INR 1.11 (0.9-1.15); Partial Thromboplastin Time 41.7 SEC (24.5-34.5); Prothrombin Time 11.7 sec (9.3-11.8)
[2024-05-16 21:31] LABS: INR 1.13 (0.9-1.15); Partial Thromboplastin Time 48.7 SEC (24.5-34.5); Prothrombin Time 11.9 sec (9.3-11.8)
[2024-05-17] VITALS (8 sets, daily range): BP systolic 112–138; BP diastolic 65–83; PULSE 69–114; RESP 16–18; TEMP 98–98.3; O2SAT 95–99
[2024-05-17] MEDS: METOCLOPRAMIDE HCL 5MG/ml INJ 2ml VIAL IV PRN (00:55)
[2024-05-17 05:36] LABS: INR 1.14 (0.9-1.15)
[2024-05-17] MEDS: DOCUSATE SOD 100 MG CAP PO PRN (08:47)
[2024-05-17 09:40] LABS: Amphetamine Screen, Urine Neg (NEGATIVE); Barbiturate Scree,Urine Neg (NEGATIVE); Benzodiazephine Screen, Urine Neg (NEGATIVE); Cocaine Screen, Urine Neg (NEGATIVE); Opiate Scree,Urine Neg (NEGATIVE)
[2024-05-17 09:41] LABS: Cannabinoid Screen, Urine Neg (NEGATIVE); Phencyclidine Screen, Urine Neg (NEGATIVE)
[2024-05-17 11:10] LABS: INR 1.11 (0.9-1.15); Partial Thromboplastin Time 69.2 SEC (24.5-34.5); Prothrombin Time 11.7 sec (9.3-11.8)
[2024-05-18 01:00] VITALS: BP 101/65; PULSE 77; RESP 16; TEMP 98.2; O2SAT 96
[2024-05-18 05:00] VITALS: BP 113/72; PULSE 87; RESP 17; TEMP 98.3; O2SAT 98
[2024-05-18 08:00] VITALS: PULSE 80; PULSE 92; RESP 18; O2SAT 98
[2024-05-18 09:00] VITALS: BP 102/62; PULSE 80; RESP 16; TEMP 97.8; O2SAT 65; O2SAT 95
[2024-05-18 13:00] VITALS: BP 116/76; PULSE 84; RESP 14; TEMP 97.8; O2SAT 100
[2024-05-18] MEDS ORDERED: PANT40T PO (13:09)
[2024-05-18 14:25] VITALS: BP 107/62; PULSE 80; RESP 14; TEMP 97.8; O2SAT 98
== END 2024-05-18 15:35 | disposition home or self-care (01) | DRG 641 ==
LOC: ER 17:37 → TELE 05-15 03:09 → TELE-WESTW 05-15 16:30
PROVIDERS: ADMIT Family Medicine; ATTEND Family Medicine
DX: E87.6 Hypokalemia (principal); R00.2 Palpitations; G89.29 Other chronic pain; E83.42 Hypomagnesemia
CPT/HCPCS: 36415; 71045; 78582; 80053; 80307; 81001; 81025; 83735; 84443; 84484; 85025; 85379; 85610; 85730; 93005; 93306; 93970; 96361; 96365; 96375; G0378; J1885; J2405; J2470; J3480

== ENCOUNTER 2024-05-19 15:52 | Emergency (ER) | payer SELFPAY ==
[~2024-05-19] VITALS: Ht 165.1 cm; Wt 64.3 kg
[~2024-05-19 15:52] MED LIST changes: +PANT40T PO
[2024-05-19 17:47] VITALS: PULSE 70; RESP 14; O2SAT 95
[2024-05-19 18:00] LABS: Urine Bacteria FEW /hpf (None Seen); Urine Blood TRACE /uL (Negative); Urine Clarity Clear (Clear); Urine Color Light-Yellow (Yellow); Urine Protein, UAD Negative (Negative); Urine Specific Gravity 1.008 (1.001-1.035); Urine Urobilinogen Normal (Negative); Urine WBC 2 /hpf (0 - 5)
[2024-05-19] MEDS: MECLIZINE HCL 25 MG TAB PO ONE (18:31)
[2024-05-19] MEDS: LORazepam 2MG/ML-1ML VIAL IV ONE (18:32)
[2024-05-19] MEDS: ONDANSETRON HCL 4 MG/2 ML VIAL IV ONE (18:32)
[2024-05-19] MEDS: SODIUM CHLORIDE 0.9% 1,000 ML IV ONE (18:32)
[2024-05-19 18:41] LABS: Basophils # (auto) 0 10 ^3/uL (0-0.2); Basophils % (auto) 0.6 % (0.0-2.0); Eosinophils # (auto) 0 10 ^3/uL (0-0.8); Eosinophils % (auto) 0.2 % (0.0-7.0); Hematocrit 39.7 % (36.0-46.0); Hemoglobin 13.4 g/dL (12.2-16.2); Lymphocytes # (auto) 0.9 10 ^3/uL (0.4-5.4); Lymphocytes % (auto) 19.8 % (10.0-50.0); Mean Corpuscular Hemoglobin 28.6 pg (28.0-32.0); Mean Corpuscular Hgb Conc. 33.8 g/dL (32.0-36.0); Mean Corpuscular Volume 84.7 fL (80.0-100.0); Monocytes # (auto) 0.6 10 ^3/uL (0-1.3); Monocytes % (auto) 12.5 % (0.0-12.0); Neutrophils # (auto) 3.1 10 ^3/uL (1.6-8.6); Neutrophils % (auto) 66.9 % (37.0-80.0); Red Blood Cells 4.69 10^6/uL (4.0-5.20); Red Cell Distribution Width 14.4 % (11.8-14.3); White Blood Cell 4.6 10^3/uL (4.4-10.8)
[2024-05-19 18:57] LABS: Alanine Aminotransferase 64 U/L (7-40); Alkaline Phosphatase 57 U/L (46-116); Anion Gap 12 (5-15); Aspartate Aminotransferase 44 U/L (13-40); BUN/Creatinine Ratio 9.7 (10.0-20.0); Blood Urea Nitrogen 7 mg/dL (9-23); Calcium 10.1 mg/dL (8.7-10.4); Carbon Dioxide 22 mmol/L (20-30); Chloride 105 mmol/L (98-107); Glucose 98 mg/dL (74-106); Potassium 3.7 mmol/L (3.5-5.1); Sodium 139 mmol/L (136-145)
[2024-05-19 18:58] LABS: Albumin 4.9 g/dL (3.2-4.8); Bilirubin, Total 0.3 mg/dL (0.2-1.0); Total Protein 8.1 g/dL (5.7-8.2)
[2024-05-19] MEDS ORDERED: HYDR-4924 PO (20:02)
[2024-05-19] MEDS ORDERED: OMEP1CAP70 PO (20:02)
[2024-05-19] MEDS ORDERED: MECL1TAB42 PO (20:02)
[2024-05-19] MEDS ORDERED: CEPH500C PO (20:02)
[2024-05-19] MEDS ORDERED: ZOFR4T PO (20:02)
[2024-05-19] MEDS: cefTRIAXone 1GM/50ML D5W 50 ML IV ONE (20:46)
[2024-05-19 21:10] VITALS: BP 114/42; PULSE 102; RESP 16; TEMP 98.7; O2SAT 96
== END 2024-05-19 21:14 | disposition home or self-care (01) ==
LOC: ER 15:52
DX: N39.0 Urinary tract infection, site not specified (principal); R10.2 Pelvic and perineal pain; F41.9 Anxiety disorder, unspecified
CPT/HCPCS: 36415; 70450; 74176; 80053; 81001; 83690; 83880; 84484; 84702; 85025; 96361; 96365; 96375; 99285; J0696; J2060; J2405; J8597

== ENCOUNTER 2025-07-14 07:44 | Emergency (ER) | payer MEDICAID, SELFPAY ==
[~2025-07-14] VITALS: Ht 165.1 cm; Wt 71.3 kg
[~2025-07-14 07:44] MED LIST changes: +CEPH500C PO; +HYDR-4924 PO; +OMEP1CAP70 PO
--- NOTE | 2025-07-14 07:59 | ED.PDOC ---
HPI Comments 39 y/o F, with no prior cardiac history presents to the ED for CC of chest pain. Patient states, she has been experiencing left sided chest pain that radiates to her back with associated nausea x1week. Patient reports, that she had previously been worked up for similar symptoms x1year prior and was told to have a PE in the left lung. Patient denies vomiting, headache, palpitations, or shortness of breath. No other symptoms or modifying factors are present at this time. Chief Complaint: Chest Pain Time Seen by MD: 08:00 Primary Care Provider: NONE Reviewed Notes: Nurses Notes, Medications, Allergies Allergies: Coded Allergies: Tramadol (Verified Allergy, Unknown, 07/14/25) Uncoded Allergies: peppers (Allergy, Intermediate, 07/27/21) hives NOVAGEN (Allergy, Unknown, 09/03/23) Home Meds Active Scripts Omeprazole (Omeprazole Dr) 20 Mg Cap, 20 MG PO DAILY, #60 CAP Prov:NAM WOLF MD 05/19/24 Cephalexin Monohydrate (Cephalexin) 500 Mg Cap, 1 CAP PO QID for 10 Days, #40 CAP Prov:NAM WOLF MD 05/19/24 Hydroxyzine HCl (Hydroxyzine Hydrochloride) 25 Mg Tab, 25 MG PO Q6HP PRN, #30 TAB Prov:NAM WOLF MD 05/19/24 Ondansetron Odt 4MG Tab (ZOFRAN PO) 4 Mg Tb, 4 MG PO TID PRN, #15 TAB ODT TAB-DISSOLVE IN MOUTH, THEN SWALLOW Prov:NAM WOLF MD 05/19/24 Meclizine HCl (Meclizine 25) 25 Mg Tab, 25 MG PO TID PRN, #30 TAB Prov:NAM WOLF MD 05/19/24 Pantoprazole Sodium Sesquihydr (Pantoprazole Sodium) 40 Mg Tab, 40 MG PO DAILY, #30 TAB Prov:MAGGIE MULLER MD 05/18/24 Dicyclomine Hcl (BENTYL CAPSULE) 10 Mg Cp, 1 CAP PO Q6HPRN, #20 CAP 0 Refills Prov:MARC RUSSELL PAC 02/13/24 Meclizine HCl (Meclizine 25) 25 Mg Tab, 25 MG PO Q8HP PRN, #15 TAB Prov:MARC RUSSELL PAC 02/13/24 Ondansetron Odt 4MG Tab (ZOFRAN PO) 4 Mg Tb, 4 MG PO Q6HP PRN, #20 TAB ODT TAB-DISSOLVE IN MOUTH, THEN SWALLOW Prov:MARC RUSSELL PAC 02/13/24 Reported Medications Alum & Mag Hydrox-Simethicone (Mylanta Maximum Strength 400-400-40 mg/5Ml) 1 Vicki Vicki, 1 VICKI PO for HEARTBURN, ML 07/12/21 Ferrous Sulfate (Ferrous Sulfate) 325 Mg Tab, 325 MG PO TIDWM for ANEMAI for 30 Days 07/11/21 Famotidine (PEPCID TABLET) 20 Mg Tb, 1 TAB PO BID for HEARTBURN, #60 TAB 5 Refills 07/11/21 Vit W/ Ferrous Fumara ( One Daily) Daily Tab, 1 TAB PO DAILY for SUPPLEMENT, #90 TAB 3 Refills 07/11/21 Information Source: Patient Mode of Arrival: Ambulatory Severity: Moderate Timing: Weeks Duration: Since onset Prehospital treatment: None Location: Chest (L) Radiation: Back Onset: At Rest Cardiac Risk Factors: None PE Risk Factors: None History of: None Modifying Factors: Nothing Associated Signs and Symptoms: N/V Past Medical History PAST MEDICAL HISTORY: Denies Surgical History: Denies all surgeries MARINE MECHANIC History: No Pertinent MARINE MECHANIC History Family History Family History: Reviewed,noncontributory to illness Social History Smoker: Non-Smoker Alcohol: Denies ETOH Use Drugs: Denies Drug Use Lives In: Home Constitutional: denies: chills, diaphoresis, fatigue, fever, malaise, sweats, weakness, others EENTM: denies: blurred vision, double vision, ear bleeding, ear discharge, ear drainage, ear pain, ear ringing, eye pain, eye redness, hearing loss, mouth pain, mouth swelling, nasal discharge, nose bleeding, nose congestion, nose pain, photophobia, tearing, throat pain, throat swelling, voice changes, others Respiratory: denies: cough, hemoptysis, orthopnea, SOB at rest, shortness of b reath, SOB with excertion, stridor, wheezing, others Cardiovascular: reports: chest pain; denies: dizzy spells, diaphoresis, Dyspnea on exertion, edema, irregular heart beat, left arm pain, lightheadedness, palpit ations, PND, syncope, others Gastrointestinal: reports: nausea; denies: abdomen distended, abdominal pain, blood streaked bowels, constipated, diarrhea, dysphagia, difficulty swallowing, hematemesis, melena, poor appetite, poor fluid intake, rectal bleeding, rectal pain, vomiting, others Genitourinary: denies: abnormal vagina bleeding, burning, dyspareunia, dysuria, flank pain, frequency, hematuria, incontinence, pain, , vagina dischar ge, urgency, others Neurological: denies: dizziness, fainting, headache, left sided numbness, left sided weakness, numbness, paresthesia, pre-existing deficit, right sided numbness, right sided weakness, seizure, speech problems, tingling, tremors, weakness, others Musculoskeletal: denies: back pain, gout, joint pain, joint swelling, muscle pain, muscle stiffness, neck pain, others Integumetry: denies: bruises, change in color, change in hair/nails, dryness, laceration, lesions, lumps, rash, wounds, others Allergic/Immunocompromised: denies: Difficulty Healing, Frequent Infections, Hives, Itching, others Hematologic/Lymphatic: denies: anemia, blood clots, easy bleeding, easy bruising, swollen glands, others Endocrine: denies: excessive hunger, excessive sweating, excessive thirst, excessive urination, flushing, intolerance to cold, intolerance to heat, unexplained weight gain, unexplained weight loss, others Psychiatric: denies: anxiety, bipolar disorder, depression, hopeless, panic disorder, schizophrenia, sleepless, suicidal, others All Other Systems: Reviewed and Negative Physical Exam General Appearance: No Apparent Distress, Normal HEENT: Normal ENT Inspection, Pharynx Normal Neck: Full Range of Motion, Non-Tender, Normal, Normal Inspection Respiratory: Chest Non-Tender, Lungs Clear, No Accessory Muscle Use, No Respiratory Distress, Normal Breath Sounds Cardiovascular: No Edema, No Murmur, No Gallop, Normal Peripheral Pulses, Regular Rate/Rhythm Breast Exam: Deferred Gastrointestinal: No Organomegaly, Non Tender, No Pulsatile Mass, Normal Bowel Sounds, Soft Genitalia: Deferred Pelvic: Deferred Rectal: Deferred Extremities: No calf tenderness, Normal capillary refill, Normal inspection, Normal range of motion, Non-tender, No pedal edema Musculoskeletal : Apperance: Normal Neurologic: Alert, gambling box person II-XII nml as Tested, No Motor Deficits, Normal Affect, Normal Mood, No Sensory Deficits Cerebellar Function: Normal Reflexes: Normal Skin: Dry, Normal Color, Warm Lymphatic: No Adenopathy Was a procedure done? Was a procedure done?: No CP Differential Dx Differential Diagnosis: Hyperventilation, Hypoxia, MAT, MD Differential Diagnosis: Chest Wall Pain, Cholelithiasis, Costochondritis, Esophageal reflux/spasm, Gastritis X-Ray, Labs, Meds, VS Vital Signs Date Time Temp Pulse Resp B/P (MAP) Pulse Ox O2 Delivery O2 Flow Rate FiO2 07/14/25 09:45 98.2 97 20 104/67 (79) 98 98.2 07/14/25 09:32 74 07/14/25 07:52 77 07/14/25 07:46 97.0 85 18 139/81 98 97.0 Lab Test 07/14/25 10:58 07/14/25 08:51 07/14/25 07:56 Range/Units Troponin I High Sensitivity < 3 L < 3 L < 3 L </=34 ng/L White Blood Count 5.6 4.4-10.8 10^3/uL Red Blood Count 4.21 4.0-5.20 10^6/uL Hemoglobin 10.6 L 12.2-16.2 g/dL Hematocrit 32.1 L 36.0-46.0 % Mean Corpuscular Volume 76.2 L 80.0-100.0 fL Mean Corpuscular Hemoglobin 25.3 L 28.0-32.0 pg Mean Corpuscular Hemoglobin Concent 33.1 32.0-36.0 g/dL Red Cell Distribution Width 15.9 H 11.8-14.3 % Platelet Count 344 140-450 10^3/uL Mean Platelet Volume 7.3 6.9-10.8 fL Neutrophils (%) (Auto) 60.9 37.0-80.0 % Lymphocytes (%) (Auto) 28.9 10.0-50.0 % Monocytes (%) (Auto) 8.3 0.0-12.0 % Eosinophils (%) (Auto) 1.1 0.0-7.0 % Basophils (%) (Auto) 0.8 0.0-2.0 % Neutrophils # (Auto) 3.4 1.6-8.6 10 ^3/uL Lymphocytes # (Auto) 1.6 0.4-5.4 10 ^3/uL Monocytes # (Auto) 0.5 0-1.3 10 ^3/uL Eosinophils # (Auto) 0.1 0-0.8 10 ^3/uL Basophils # (Auto) 0 0-0.2 10 ^3/uL Nucleated Red Blood Cells 0.1 % Sodium Level 140 136-145 mmol/L Potassium Level 3.6 3.5-5.1 mmol/L Chloride Level 106 98-107 mmol/L Carbon Dioxide Level 25 20-31 mmol/L Anion Gap 9 5-15 Blood Urea Nitrogen 8 L 9-23 mg/dL Creatinine 0.77 0.550-1.02 mg/dL Glomerular Filtration Rate Calc 100 >90 mL/min BUN/Creatinine Ratio 10.4 10.0-20.0 Serum Glucose 98 74-106 mg/dL Calcium Level 9.4 8.7-10.4 mg/dL [place] [address] Ph: [phone] DIAGNOSTIC IMAGING Diagnostic Imaging Report : [id number] Signed PATIENT: DONNY RAVIACCT: [id number] UNIT: [id number] : 1985 LOC: ER ROOM / BED: / AGE / SEX: 39 / F ADM STATUS: REG ER SERVICE [id number] ORDERING PHYSICIAN: DERREK JORDAN MD PROCEDURE(s): CXRP - CHEST PORTABLE REASON: chest pain ORDER NUMBER(s): [id number], ACCESSION NUMBER(s): [id number] CHEST RADIOGRAPH Indication: chest pain Technique: Single frontal view of the chest was obtained COMPARISON: CT CT CHEST/AB/PL W CON- IV ONLY on DOS: 05/14/24, XY CHEST PORTABLE on DOS: 05/14/24, XY CHEST PORTABLE on DOS: 09/03/23 FINDINGS: Lines and Tubes: None Lungs: Clear Pleura: No effusion. No pneumothorax. Cardiomediastinal contours: Unremarkable Bones: Unremarkable IMPRESSION: No acute disease. ATED BY: MANDEEP HANNAH MD DICTATED DATE/TIME: 07/14/25825 SIGNED BY: MANDEEP HANNAH MD SIGNED DATE/TIME: 07/14/25825 CC: Time of 1ST Reevaluation: 08:30 Reevaluation 1ST: Unchanged Patient Education/Counseling: Diagnosis, Treatment Family Education/Counseling: No Family Present SEPSIS Sepsis Screen Date sepsis recognized/suspect: Jul 14, 2025 Time Sepsis recognized/suspect: 746 Recent Procedure: No On Antibiotic Therapy: No Respiratory Rate >20: No Heart Rate >90: No Temp<36 C (96.8 F) or >38.3 C: No SBP <90 or MAP <65 mmHG: No New Acute Mental Status Change: No Is the patient on CPAP, BIPAP,: No Physician Orders Electrocardigram (07/14/25 10:49) Chest Portable (07/14/25 08:02) Vital Signs Date Time Temp Pulse Resp B/P (MAP) Pulse Ox O2 Delivery O2 Flow Rate FiO2 07/14/25 09:45 98.2 97 20 104/67 (79) 98 98.2 07/14/25 09:32 74 07/14/25 07:52 77 07/14/25 07:46 97.0 85 18 139/81 98 97.0 Laboratory Tests Test 07/14/25 07:56 White Blood Count 5.6 10^3/uL (4.4-10.8) Departure 1 Departure Time of Disposition: 12:48 (Patient presented with chest pain that was conc erning for possible STEMI, ACS, PE, Pneumonia, Muscle Strain, COPD, Dissection. Data: 1. I ordered and reviewed the result of at least 3 labs including a CBC, BMP, and Troponin. 2. I independently interpreted the following tests: EKG which shows normal sinus rhythm and Chest X-ray which shows a benign chest.Risk:This patient presented with a high risk of morbidity due to further diagnostic testing or treatment and may suffer from an acute cardiac or respiratory disorder. After review of all the data patient is unlikely to have a pe , dissection, and is low risk for acs. Patient is stable at this time.Workup so far is benign and patient will be discharged with outpatient followup. ) Impression: Primary Impression: Acute chest pain Disposition: HOME / SELF CARE / HOMELESS Condition: Stable Additional Instructions: You presented today with chest pain. Your workup today was benign including labs, troponin, EKG, chest x-ray. Your pain may be from musculoskeletal strain, acid reflux, anxiety, or many other factors. It is important to follow up with your regular doctor within 1 week. If your symptoms worsen or you have any other concerns please return to the emergency room. Discharged With: Self Critical Care Note Critical Care Time?: No Stability Stability form required: No Heart Score Heart Score: Heart Score Response (Comments) Value History N/A 0 EKG N/A 0 Age N/A 0 Risk Factors N/A 0 Troponin N/A 0 Total 0 I personally scribed for DERREK JORDAN MD ([email or web address]) on 07/14/25 at 07:59. Elec tronically submitted by Katie Krishnan ([email or web address]). I personally scribed for DERREK JORDAN MD ([email or web address]) on 07/14/25 at 08:33. Electronically submitted by Katie Krishnan ([email or web address]). I personally scribed for DERREK JORDAN MD ([email or web address]) on 07/14/25 at 08:40. Electronically submitted by Katie Krishnan ([email or web address]). I personally scribed for DERREK JORDAN MD ([email or web address]) on 07/14/25 at 08:40. Electronically submitted by Katie Krishnan ([email or web address]). I personally scribed for DERREK JORDAN MD ([email or web address]) on 07/14/25 at 09:13. Electronically submitted by Katie Krishnan ([email or web address]). I personally scribed for DERREK JORDAN MD ([email or web address]) on 07/14/25 at 11:01. Electronically submitted by Katie Krishnan ([email or web address]). DERREK JORDAN MD Jul 14, 2025 07:59
[2025-07-14 08:10] LABS: Hematocrit 32.1 % (36.0-46.0); Hemoglobin 10.6 g/dL (12.2-16.2); Mean Corpuscular Hemoglobin 25.3 pg (28.0-32.0); Mean Corpuscular Volume 76.2 fL (80.0-100.0); Nucleated Red Blood Cells % 0.1 %
[2025-07-14 08:20] LABS: Chloride 106 mmol/L (98-107); Potassium 3.6 mmol/L (3.5-5.1); Sodium 140 mmol/L (136-145)
[2025-07-14 08:21] LABS: Anion Gap 9 (5-15); Calcium 9.4 mg/dL (8.7-10.4); Carbon Dioxide 25 mmol/L (20-31)
[2025-07-14 08:26] LABS: Glucose 98 mg/dL (74-106)
[2025-07-14 08:28] LABS: BUN/Creatinine Ratio 10.4 (10.0-20.0)
--- NOTE | 2025-07-14 08:28 | DVH ---
CHEST RADIOGRAPH Indication: chest pain Technique: Single frontal view of the chest was obtained COMPARISON: CT CT CHEST/AB/PL W CON- IV ONLY on DOS: 05/14/24, XY CHEST PORTABLE on DOS: 05/14/24, XY C HEST PORTABLE on DOS: 09/03/23 FINDINGS: Lines and Tubes: None Lungs: Clear Pleura: No effusion. No pneumothorax. Cardiomediastinal contours: Unremarkable Bones: Unremarkable IMPRESSION: No acute disease.
[2025-07-14 08:32] LABS: Blood Urea Nitrogen 8 mg/dL (9-23)
[2025-07-14 09:45] VITALS: BP 104/67; RESP 20; TEMP 98.2; O2SAT 98
[2025-07-14 10:46] VITALS: PULSE 75
--- NOTE | 2025-07-14 11:01 | ECG ---
[facility] Test Date: 2025-07-14 Test Time: 10:46:48 Pat Name: DONNY GARDNER Department: Room: Gender: F Cloth Carrier: ELSA : 1985 Requested By: DERREK JORDAN Order Number: [id number] Reading MD: Measurements Intervals [place] Rate: 75 P: 38 [place]: 141 QRS: 21 QRSD: 91 T: 22 QT: 411 QTc: 460 Interpretive Statements Sinus rhythm Low voltage, precordial leads Please click the below link to view image of tracing.
--- NOTE | 2025-07-14 12:36 | ECG ---
[facility] Test Date: 2025-07-14 Test Time: 09:32:16 Pat Name: DONNY GARDNER Department[facility] Patient ID[id number] Room: Gender: F [employer] Technician: ELSA : 1985 Requested By: DERREK JORDAN Order Number: [id number] Reading MD: Measurements Intervals [place] Rate: 74 P: 33 NV: 150 QRS: 22 QRSD: 85 T: 19 QT: 402 QTc: 446 Interpretive Statements Sinus rhythm Low voltage, precordial leads Please click the below link to view image of tracing.
--- NOTE | 2025-07-15 09:59 | ECG ---
[facility] Test Date: 2025-07-14 Test Time: 07:52:31 Pat Name: DONNY GARDNER Department: Room: Gender: F Glaciologist: DEA : 1985 Requested By: DERREK JORDAN Order Number: [id number] Reading MD: Measurements Intervals [place] Rate: 77 P: 82 AL: 155 QRS: 6 QRSD: 87 T: 17 QT: 378 QTc: 428 Interpretive Statements Sinus rhythm Low voltage, extremity and precordial leads Please click the below link to view image of tracing.
== END 2025-07-14 13:13 | disposition home or self-care (01) ==
LOC: ER 07:44
DX: R07.89 Other chest pain (principal); Z88.5 Allergy status to narcotic agent; Z79.899 Other long term (current) drug therapy
CPT/HCPCS: 36415; 71045; 80048; 84484; 85025; 93005

== ENCOUNTER 2025-10-03 17:53 | Inpatient (IN) | payer MEDICAID ==
[~2025-10-03] VITALS: Ht 165.1 cm; Wt 74.6 kg
--- NOTE | 2025-10-03 18:25 | ED.PDOC ---
GI ASSESSMENT HPI Comments This is a 39 year old female presenting to the ED with chief complaint of abdominal pain. Patient reports that she has been experiencing RUQ abdominal pain with associated chills since last Friday. Patient relays that her pain has started to radiate to her back. Patient states that she has history of gallstones, but no cholecystectomy. Patient notes Tylenol has provided relief in pain. Patient denies any N/V/D, fever, chills, dizziness, dysuria, or flank pain. Chief Complaint: Abdominal Pain Time Seen by MD: 18:22 Primary Care Provider: NONE Reviewed Notes: Nurses Notes, Medications, Allergies Allergies: Coded Allergies: Tramadol (Verified Allergy, Unknown, 07/14/25) Uncoded Allergies: peppers (Allergy, Intermediate, 07/27/21) hives NOVAGEN (Allergy, Unknown, 09/03/23) Home Meds Active Scripts Omeprazole (Omeprazole Dr) 20 Mg Cap, 20 MG PO DAILY, #60 CAP Prov:NAM WOLF MD 05/19/24 Cephalexin Monohydrate (Cephalexin) 500 Mg Cap, 1 CAP PO QID for 10 Days, #40 CAP Prov:NAM WOLF MD 05/19/24 Hydroxyzine HCl (Hydroxyzine Hydrochloride) 25 Mg Tab, 25 MG PO Q6HP PRN, #30 TAB Prov:NAM WOLF MD 05/19/24 Ondansetron Odt 4MG Tab (ZOFRAN PO) 4 Mg Tb, 4 MG PO TID PRN, #15 TAB ODT TAB-DISSOLVE IN MOUTH, THEN SWALLOW Prov:NAM WOLF MD 05/19/24 Meclizine HCl (Meclizine 25) 25 Mg Tab, 25 MG PO TID PRN, #30 TAB Prov:NAM WOLF MD 05/19/24 Pantoprazole Sodium Sesquihydr (Pantoprazole Sodium) 40 Mg Tab, 40 MG PO DAILY, #30 TAB Prov:MAGGIE MULLER MD 05/18/24 Dicyclomine Hcl (BENTYL CAPSULE) 10 Mg Cp, 1 CAP PO Q6HPRN, #20 CAP 0 Refills Prov:MARC RUSSELL PAC 02/13/24 Meclizine HCl (Meclizine 25) 25 Mg Tab, 25 MG PO Q8HP PRN, #15 TAB Prov:MARC RUSSELL PAC 02/13/24 Ondansetron Odt 4MG Tab (ZOFRAN PO) 4 Mg Tb, 4 MG PO Q6HP PRN, #20 TAB ODT TAB-DISSOLVE IN MOUTH, THEN SWALLOW Prov:MARC RUSSELL PAC 02/13/24 Reported Medications Alum & Mag Hydrox-Simethicone (Mylanta Maximum Strength 400-400-40 mg/5Ml) 1 Vicki Vicki, 1 VICKI PO for HEARTBURN, ML 07/12/21 Ferrous Sulfate (Ferrous Sulfate) 325 Mg Tab, 325 MG PO TIDWM for ANEMAI for 30 Days 07/11/21 Famotidine (PEPCID TABLET) 20 Mg Tb, 1 TAB PO BID for HEARTBURN, #60 TAB 5 Refil ls 07/11/21 Vit W/ Ferrous Fumara ( One Daily) Daily Tab, 1 TAB PO DAILY for SUPPLEMENT, #90 TAB 3 Refills 07/11/21 Information Source: Patient Mode of Arrival: Ambulatory Timing: Days Duration: Since onset Prehospital treatment: None Quality: Sharp Vomitus: None Stool: Normal Severity: Moderate Recent: None Recent Hx of: None Pain Location: RUQ Modifying Factors: Nothing Associated sign and symptoms: Abdominal Pain Past Medical History PAST MEDICAL HISTORY: Anemia, Gallstones, HTN Past Medical History (Other): Prediabetes Surgical History: Denies all surgeries COMPUTER INFORMATION SYSTEMS INSTRUCTOR History: No Pertinent COMPUTER INFORMATION SYSTEMS INSTRUCTOR History Family History Family History: Reviewed,noncontributory to illness, Family hx of DM, Family hx of Cancer Family History (Other): Arthritis Social History Smoker: Non-Smoker Alcohol: Denies ETOH Use Drugs: Denies Drug Use Lives In: Home Constitutional: reports: chills; denies: diaphoresis, fatigue, fever, malaise, sweats, weakness, others EENTM: denies: blurred vision, double vision, ear bleeding, ear discharge, ear drainage, ear pain, ear ringing, eye pain, eye redness, hearing loss, mouth pain, mouth swelling, nasal discharge, nose bleeding, nose congestion, nose pain, photophobia, tearing, throat pain, throat swelling, voice changes, others Respiratory: denies: cough, hemoptysis, orthopnea, SOB at rest, shortness of breath, SOB with excertion, stridor, wheezing, others Cardiovascular: denies: chest pain, dizzy spells, diaphoresis, Dyspnea on exertion, edema, irregular heart beat, left arm pain, lightheadedness, palpitations, PND, syncope, others Gastrointestinal: reports: abdominal pain; denies: abdomen distended, blood streaked bowels, constipated, diarrhea, dysphagia, difficulty swallowing, hematemesis, melena, nausea, poor appetite, poor fluid intake, rectal bleeding, rectal pain, vomiting, others Genitourinary: denies: abnormal vagina bleeding, burning, dyspareunia, dysuria, flank pain, frequency, hematuria, incontinence, pain, , vagina discharge, urgency, others Neurological: denies: dizziness, fainting, headache, left sided numbness, left sided weakness, numbness, paresthesia, pre-existing deficit, right sided numbne ss, right sided weakness, seizure, speech problems, tingling, tremors, weakness, others Musculoskeletal: denies: back pain, gout, joint pain, joint swelling, muscle pain, muscle stiffness, neck pain, others Integumetry: denies: bruises, change in color, change in hair/nails, dryness, laceration, lesions, lumps, rash, wounds, others Allergic/Immunocompromised: denies: Difficulty Healing, Frequent Infections, Hives, Itching, others Hematologic/Lymphatic: denies: anemia, blood clots, easy bleeding, easy bruising, swollen glands, others Endocrine: denies: excessive hunger, excessive sweating, excessive thirst, excessive urination, flushing, intolerance to cold, intolerance to heat, unexplained weight gain, unexplained weight loss, others Psychiatric: denies: anxiety, bipolar disorder, depression, hopeless, panic disorder, schizophrenia, sleepless, suicidal, others All Other Systems: Reviewed and Negative Physical Exam General Appearance: Moderate Distress HEENT: Normal ENT Inspection, Pharynx Normal, TMs Normal Neck: Full Range of Motion, Non-Tender, Normal, Normal Inspection Respiratory: Chest Non-Tender, Lungs Clear, No Accessory Muscle Use, No Respiratory Distress, Normal Breath Sounds Cardiovascular: No Edema, No JVD, No Murmur, No Gallop, Normal Peripheral Pulses, Regular Rate/Rhythm Breast Exam: Deferred Gastrointestinal: No Organomegaly, No Pulsatile Mass, Normal Bowel Sounds, RUQ, Soft, Tenderness Genitalia: Deferred Pelvic: Deferred Rectal: Deferred Extremities: No calf tenderness, Normal capillary refill, Normal inspection, Normal range of motion, Non-tender, No pedal edema Musculoskeletal : Apperance: Normal Neurologic: Alert, marine equipment preservation inspector II-XII nml as Tested, No Motor Deficits, Normal Affect, Normal Mood, No Sensory Deficits Cerebellar Function: Normal Reflexes: Normal Skin: Dry, Normal Color, Warm Lymphatic: No Adenopathy Was a procedure done? Was a procedure done?: No GI differential Dx Differential Diagnosis: Cholangitis, Cholecystitis, Gastritis/PUD, Gastroenteritis, Pancreatitis X-Ray, Labs, Meds, VS Vital Signs Date Time Temp Pulse Resp B/P (MAP) Pulse Ox O2 Delivery O2 Flow Rate FiO2 10/03/25 20:23 97.6 81 15 112/59 (76) 100 97.6 10/03/25 17:56 97.5 106 16 140/93 98 97.5 Lab Test 10/03/25 19:40 10/03/25 18:19 Range/Units Urine Color Colorless Yellow Urine Clarity Clear Clear Urine pH 6.0 5.0-9.0 Urine Specific [place] 1.005 1.001-1.035 Urine Protein Negative Negative Urine Ketones Negative Negative Urine Blood Trace H Negative /uL Urine Nitrite Negative Negative Urine Bilirubin Negative Negative Urine Urobilinogen Normal Negative mg/dL Urine Leukocyte Esterase Negative Negative /uL Urine RBC 1 0 - 4 /hpf Urine Microscopic WBC < 1 0-5 /HPF Urine Squamous Epithelial Cells Few <5 /hpf Urine Bacteria Few H None Seen /hpf Urine Glucose Normal Normal mg/dL White Blood Count 6.6 4.4-10.8 10^3/uL Red Blood Count 4.30 4.0-5.20 10^6/uL Hemoglobin 10.8 L 12.2-16.2 g/dL Hematocrit 33.0 L 36.0-46.0 % Mean Corpuscular Volume 76.7 L 80.0-100.0 fL Mean Corpuscular Hemoglobin 25.0 L 28.0-32.0 pg Mean Corpuscular Hemoglobin Concent 32.6 32.0-36.0 g/dL Red Cell Distribution Width 16.3 H 11.8-14.3 % Platelet Count 366 140-450 10^3/uL Mean Platelet Volume 7.7 6.9-10.8 fL Neutrophils (%) (Auto) 66.4 37.0-80.0 % Lymphocytes (%) (Auto) 25.3 10.0-50.0 % Monocytes (%) (Auto) 7.5 0.0-12.0 % Eosinophils (%) (Auto) 0.2 0.0-7.0 % Basophils (%) (Auto) 0.6 0.0-2.0 % Neutrophils # (Auto) 4.4 1.6-8.6 10 ^3/uL Lymphocytes # (Auto) 1.7 0.4-5.4 10 ^3/uL Monocytes # (Auto) 0.5 0-1.3 10 ^3/uL Eosinophils # (Auto) 0 0-0.8 10 ^3/uL Basophils # (Auto) 0 0-0.2 10 ^3/uL Nucleated Red Blood Cells 0.0 % Sodium Level 139 136-145 mmol/L Potassium Level 3.6 3.5-5.1 mmol/L Chloride Level 105 98-107 mmol/L Carbon Dioxide Level 26 20-31 mmol/L Anion Gap 8 5-15 Blood Urea Nitrogen 8 L 9-23 mg/dL Creatinine 0.69 0.550-1.02 mg/dL Glomerular Filtration Rate Calc 112 >90 mL/min BUN/Creatinine Ratio 11.6 10.0-20.0 Serum Glucose 100 74-106 mg/dL Calcium Level 9.6 8.7-10.4 mg/dL Total Bilirubin 0.3 0.2-1.0 mg/dL Aspartate Amino Transferase (AST) 13 13-40 U/L Alanine Aminotransferase (ALT) 12 7-40 U/L Alkaline Phosphatase 65 46-116 U/L Total Protein 8.2 5.7-8.2 g/dL Albumin 4.6 3.2-4.8 g/dL Lipase 36 12-53 U/L Current Medications Medications (Trade) Dose Ordered Sig/Harpreet Route Start Time Stop Time Status Last Admin Ondansetron HCl (Zofran) 4 mg ONCE ONCE IV 10/03/25 18:15 10/03/25 18:16 DC 10/03/25 19:01 Sodium Chloride 500 ml @ 500 mls/hr Q1H ONCE IVB 10/03/25 18:15 10/03/25 19:14 DC 10/03/25 19:40 Ketorolac Tromethamine (Toradol Injection) 30 mg ONCE ONCE IV 10/03/25 19:00 10/03/25 19:01 DC 10/03/25 19:01 Ultrasound of the gallbladder shows cholelithiasis The patient's CBC shows anemia with a hemoglobin of 10.8 The chemistry panel is within normal limits The liver enzymes are negative Patient was given ketorolac 30 mg IV push for the pain The patient was given normal saline at 500 cc bolus The patient was given Zofran 4 mg IV push the nausea The lipase is within normal limits The patient is being admitted at this time. Images Reviewed?: Images reviewed and evaluated by me Time of 1ST Reevaluation: 20:53 Reevaluation 1ST: Unchanged Patient Education/Counseling: Diagnosis, Treatment, Prognosis Family Education/Counseling: No Family Present SEPSIS Sepsis Screen Date sepsis recognized/suspect: Oct 03, 2025 Time Sepsis recognized/suspect: 1756 Recent Procedure: No On Antibiotic Therapy: No Respiratory Rate >20: No Heart Rate >90: No Temp<36 C (96.8 F) or >38.3 C: No SBP <90 or MAP <65 mmHG: No New Acute Mental Status Change: No Is the patient on CPAP, BIPAP,: No Physician Orders Heplock Iv (10/03/25 18:11) Gallbladder (10/03/25 18:11) Vital Signs Date Time Temp Pulse Resp B/P (MAP) Pulse Ox O2 Delivery O2 Flow Rate FiO2 10/03/25 20:23 97.6 81 15 112/59 (76) 100 97.6 10/03/25 17:56 97.5 106 16 140/93 98 97.5 Laboratory Tests Test 10/03/25 18:19 White Blood Count 6.6 10^3/uL (4.4-10.8) Medications Medications Dose Ordered Sig/Harpreet Route Start Time Stop Time Status Last Admin Dose Admin Ketorolac Tromethamine 30 mg ONCE ONCE IV 10/03/25 19:00 10/03/25 19:01 DC 10/03/25 19:01 Ondansetron HCl 4 mg ONCE ONCE IV 10/03/25 18:15 10/03/25 18:16 DC 10/03/25 19:01 Sodium Chloride 500 ml @ 500 mls/hr Q1H ONCE IVB 10/03/25 18:15 10/03/25 19:14 DC 10/03/25 19:40 Departure 1 Departure Time of Disposition: 20:53 Impression: Primary Impression: Intractable abdominal pain Additional Impression: Cholelithiasis Qualified Codes: K80.20 - Calculus of gallbladder without cholecystitis without obstruction Disposition: ADMITTED INPATIENT Admit to: Med Surg Condition: Fair Critical Care Note Critical Care Time?: No Stability Stability form required: Yes Unstable for transfer: ED Physician Assesment (Clinical assesment) Heart Score Heart Score: Heart Score Response (Comments) Value History N/A 0 EKG N/A 0 Age N/A 0 Risk Factors N/A 0 Troponin N/A 0 Total 0 I personally scribed for ANGELICA DAILEY MD ([email or web address]) on 10/03/25 at 18:24. Electronically submitted by Nate Farrell ([email or web address]). ANGELICA DAILEY MD Oct 03, 2025 18:24
[2025-10-03 18:40] LABS: Hematocrit 33.0 % (36.0-46.0); Hemoglobin 10.8 g/dL (12.2-16.2); Mean Corpuscular Hemoglobin 25.0 pg (28.0-32.0); Mean Corpuscular Volume 76.7 fL (80.0-100.0); Nucleated Red Blood Cells % 0.0 %
[2025-10-03 18:52] LABS: Alanine Aminotransferase 12 U/L (7-40); Albumin 4.6 g/dL (3.2-4.8); Alkaline Phosphatase 65 U/L (46-116); Anion Gap 8 (5-15); BUN/Creatinine Ratio 11.6 (10.0-20.0); Bilirubin, Total 0.3 mg/dL (0.2-1.0); Calcium 9.6 mg/dL (8.7-10.4); Carbon Dioxide 26 mmol/L (20-31); Chloride 105 mmol/L (98-107); Glucose 100 mg/dL (74-106); Lipase 36 U/L (12-53); Potassium 3.6 mmol/L (3.5-5.1); Sodium 139 mmol/L (136-145); Total Protein 8.2 g/dL (5.7-8.2)
[2025-10-03] MEDS: MORPHINE SULFATE 4 MG/ML SYR/VIAL IV ONE (18:57)
[2025-10-03 18:58] LABS: Blood Urea Nitrogen 8 mg/dL (9-23)
[2025-10-03] MEDS: KETOROLAC TROMETH 30 MG/ML 1ML VIAL IV ONE (19:01)
[2025-10-03] MEDS: ONDANSETRON HCL 4 MG/2 ML VIAL IV ONE (19:01)
[2025-10-03] MEDS: SODIUM CHLORIDE 0.9% 500 ML IVB ONE (19:40)
--- NOTE | 2025-10-03 20:38 | DVH ---
CLINICAL HISTORY: pain TECHNIQUE: Transabdominal sonogram was performed of the right upper quadrant of the abdomen was performed with grayscale and color doppler images. WID: COMPARISON: None FINDINGS: The liver demonstrates normal echotexture without focal abnormality. The liver is normal in size measuring 11.8 cm. Main portal vein is patent with proper directional flow. There is no intrahepatic biliary ductal dilatation. Several calcified gallstones without gallbladder wall distension or wall thickening. The common bile duct is 3.4. mm in diameter. The right is normal in size and echotexture without hydronephrosis or calculi. No renal masses are identified. Visualized abdominal aorta and inferior vena cava are unremarkable. IMPRESSION: Cholelithiasis is
[2025-10-03 20:42] LABS: Urine Protein, UAD Negative (Negative)
[2025-10-04] MEDS: SODIUM CHLORIDE 0.9% 1,000 ML IV SCH (00:15)
[2025-10-04] MEDS ORDERED: NITROGLYCERIN 0.4 MG SL TAB SL PRN (00:15)
[2025-10-04] MEDS ORDERED: MORPHINE SULFATE INJ 2 MG/ml SYRG IV PRN ×2 (00:15)
[2025-10-04] MEDS: SODIUM CHLORIDE 0.9% 1,000 ML IV ONE (00:29)
[2025-10-04] MEDS ORDERED: METO25TA93 PO (01:03)
[2025-10-04 02:44] VITALS: BP 124/76; PULSE 84; TEMP 98.1; O2SAT 100
[2025-10-04] MEDS ORDERED: MAGN241.6 PO (02:48)
[2025-10-04 09:00] VITALS: BP 121/72; PULSE 100; RESP 15; TEMP 97.5; O2SAT 100
[2025-10-04] MEDS: ONDANSETRON HCL 4 MG/2 ML VIAL IV PRN (09:14)
[2025-10-04 13:00] VITALS: BP 105/73; PULSE 80; RESP 16; TEMP 98.6; O2SAT 100
--- NOTE | 2025-10-04 13:47 | DVHHP2 ---
Admitting Diagnosis: Abdominal pain History of Present Illness 39 yo female patient with hx of gallstones c/o intractable abdominal pain. She has a history of cholelithiasis, and she reports the pain comes after eating. She states she has lost significant weight and has only been able to mainly eat salads and clear liquids. Patient was admitted for evaluation for possible colicky gallbladder, and GI and surgical services will be consulted for evaluation. While in the emergency department the patient was evaluated by the provider, As per provider: Labs, vital signs, and imagining monitored. Patient will be admitted for further evaluation and treatment. I discussed admission with the patient/family and is in agreement to treatment plan. Patient Family History: Arthritis G8 MOTHER G8 FATHER Diabetes mellitus G8 MOTHER FH: cancer G8 FATHER Hypercholesterolemia G8 MOTHER Allergies: Coded Allergies: Tramadol (Verified Allergy, Unknown, 07/14/25) Uncoded Allergies: peppers (Allergy, Intermediate, 07/27/21) hives NOVAGEN (Allergy, Unknown, 09/03/23) Home Meds Active Scripts Omeprazole (Omeprazole Dr) 20 Mg Cap, 20 MG PO DAILY, #60 CAP Prov:NAM WOLF MD 05/19/24 Pantoprazole Sodium Sesquihydr (Pantoprazole Sodium) 40 Mg Tab, 40 MG PO DAILY, #30 TAB Prov:MAGGIE MULLER MD 05/18/24 Reported Medications Magnesium Oxide (mg Supplement (Magnesium-Oxide) 400 Mg Tab, 1 TAB PO DAILY 10/04/25 Metoprolol Succinate (Metoprolol Succinate Er) 25 Mg Tab, 25 MG PO DAILY@LUNCH for 30 Days, MG 10/04/25 Ferrous Sulfate (Ferrous Sulfate) 325 Mg Tab, 325 MG PO TIDWM for ANEMAI for 30 Days 07/11/21 Current Medications Current Medications Medications (Trade) Dose Ordered Sig/Harpreet Route PRN Reason Start Time Stop Time Status Last Admin Sodium Chloride 1,000 ml @ 120 mls/hr Q8H20M IV 10/04/25 00:15 10/04/25 09:13 Acetaminophen (Tylenol Tablet) 325 mg Q4HP PRN PO MILD PAIN (1-3 PAIN SCALE) 10/04/25 00:15 Acetaminophen/ Hydrocodone Bitart (Lincoln 5/325MG Tab) 1 tab Q4HP PRN PO MODERATE PAIN (4-6 PAIN SCALE) 10/04/25 00:15 Ondansetron HCl (Zofran) 4 mg Q4HP PRN IV NAUSEA / VOMITING 10/04/25 00:15 10/04/25 09:14 Docusate Sodium (Colace Capsule) 100 mg BIDPRN PRN PO FOR CONSTIPATION 10/04/25 00:15 Morphine Sulfate 2 mg Q4HPRN PRN IV SEVERE PAIN (7-10 PAIN SCALE) 10/04/25 00:15 Nitroglycerin (Ntrostat Sublingual) 0.4 mg Q5MINP PRN SL FOR CHEST PAIN 10/04/25 00:15 Morphine Sulfate 2 mg Q30M PRN IV FOR CHEST PAIN 10/04/25 00:15 Pantoprazole Sodium (Protonix) 40 mg DAILY IV 10/05/25 10:00 Review of Systems Constitutional: denies chills, denies fever, denies malaise Eyes: denies eye pain, denies vision change ENT: denies ear pain, denies headache, denies nasal congestion, denies painful swallowing, denies voice change Cardiovascular: denies chest pain, denies edema, denies orthopnea, denies palpitations, denies paroxysmal nocturnal dyspnea Respiratory: denies cough, denies shortness of breath Gastrointestinal: denies constipation, denies diarrhea, denies nausea, denies vomiting Genitourinary: denies dysuria, denies frequent urination, denies urethral discharge Musculoskeletal: denies back pain, denies joint pain, denies muscle pain Skin: denies bruising, denies itching, denies rash Neurological: denies focal weakness, denies headache, denies sensory changes Psychiatric: denies anxiety, denies depression Endocrine: denies polydipsia, denies polyuria Hematologic/Lymphatic: denies easy bleeding, denies easy bruising, denies enlarged lymph nodes Allergic/Immunologic: denies allergy, denies hives Vital Signs Vital Signs Date Time Temp Pulse Resp B/P (MAP) Pulse Ox O2 Delivery O2 Flow Rate FiO2 10/04/25 18:45 98.3 80 18 112/76 (88) 100 98.3 10/04/25 08:00 Room Air* 0 21 Physical Exam General Appearance: alert, no distress HEENT: EOMI, PERRLA, normal external inspect of ears, no icterus, no nasal drainage Neck: no carotid bruit, no jugular venous distention (JVD), no lymphadenopathy Chest: normal thorax Respiratory: clear to auscultation, normal air movement Cardiovascular: regular rate and rhythm, no diastolic murmur, no jugular venous distention (JVD), no rub, no systolic murmur Abdominal: soft, no hepatomegaly, no mass, no splenomegaly, no tenderness Genitourinary: grossly normal external Musculoskeletal: no joint tenderness, no swelling Extremities: normal pulses, no calf tenderness, no clubbing, no cyanosis, no edema Skin: no bruising, no jaundice, no rash Neurological: alert, No focal deficit SEPSIS Sepsis Screen Date sepsis recognized/suspect: Oct 04, 2025 Time Sepsis recognized/suspect: 0020 Recent Procedure: No On Antibiotic Therapy: No Respiratory Rate >20: No Heart Rate >90: No Temp<36 C (96.8 F) or >38.3 C: No SBP <90 or MAP <65 mmHG: No New Acute Mental Status Change: No Is the patient on CPAP, BIPAP,: No Physician Orders Heplock Iv (10/03/25 18:11) Gallbladder (10/03/25 18:11) Admit (10/04/25 00:09) Sodium Chloride 0.9% (10/04/25 00:15) Acetaminophen Tablet (Tylenol Tablet) (10/04/25 00:15) Hydrocodone-Acet 5/325mg Tab (Lincoln 5/32 (10/04/25 00:15) Ondansetron Hcl (Zofran) (10/04/25 00:15) Docusate Sodium Capsule (Colace Capsule) (10/04/25 00:15) Complete Blood Count (10/05/25 04:00) Comprehensive Metabolic Panel (10/05/25 04:00) Morphine Sulfate Injection (10/04/25 00:15) Nitroglycerin Sublingual (Ntrostat Subli (10/04/25 00:15) Morphine Sulfate Injection (10/04/25 00:15) Stat Ekg For Chest Pain (10/04/25 00:09) Notify Of Changes From Base (10/04/25 00:09) Email Deployment Specialist For 24 Hours (10/04/25 00:09) Emergency Dysrhythmia Protocol (10/04/25 00:09) Rhythm Strips Once Every Shift (10/04/25 00:09) Oxygen By Nasal Cannula (10/04/25 00:09) Communication Order (10/04/25 13:46) * Gi Dvh Rectifier Operator (10/04/25 13:47) Nm Hida Scan (10/04/25 14:19) Pantoprazole (Protonix) (10/05/25 10:00) * Surgical Consult (10/04/25 ) Npo (Nothing By Mouth) Diet (10/04/25 Dinner) Vital Signs Date Time Temp Pulse Resp B/P (MAP) Pulse Ox O2 Delivery O2 Flow Rate FiO2 10/04/25 18:45 98.3 80 18 112/76 (88) 100 98.3 10/04/25 17:00 98.2 74 18 101/41 (61) 100 98.2 10/04/25 13:00 98.6 80 16 105/73 (84) 100 98.6 10/04/25 09:00 97.5 100 15 121/72 (88) 100 97.5 10/04/25 08:00 Room Air* 0 21 10/04/25 02:44 Room Air* 0 21 10/04/25 02:44 98.1 84 124/76 (92) 100 98.1 10/04/25 01:06 Room Air* 0 21 10/04/25 00:42 98.3 80 13 140/70 (93) 100 98.3 10/04/25 00:20 98.3 80 13 140/70 (93) 100 98.3 10/03/25 20:23 97.6 81 15 112/59 (76) 100 97.6 10/03/25 17:56 97.5 106 16 140/93 98 97.5 Laboratory Tests Test 10/03/25 18:19 White Blood Count 6.6 10^3/uL (4.4-10.8) Medications Medications Dose Ordered Sig/Harpreet Route Start Time Stop Time Status Last Admin Dose Admin Pantoprazole Sodium 40 mg ONCE ONCE IV 10/04/25 17:00 10/04/25 17:03 DC 10/04/25 17:21 Results Labs Test 10/04/25 13:58 10/03/25 19:40 10/03/25 18:19 Range/Units Beta HCG, Quantitative 0.7 L 1.5-4.2 mIU/mL Urine Color Colorless Yellow Urine Clarity Clear Clear Urine pH 6.0 5.0-9.0 Urine Specific [place] 1.005 1.001-1.035 Urine Protein Negative Negative Urine Ketones Negative Negative Urine Blood Trace H Negative /uL Urine Nitrite Negative Negative Urine Bilirubin Negative Negative Urine Urobilinogen Normal Negative mg/dL Urine Leukocyte Esterase Negative Negative /uL Urine RBC 1 0 - 4 /hpf Urine Microscopic WBC < 1 0-5 /HPF Urine Squamous Epithelial Cells Few <5 /hpf Urine Bacteria Few H None Seen /hpf Urine Glucose Normal Normal mg/dL White Blood Count 6.6 4.4-10.8 10^3/uL Red Blood Count 4.30 4.0-5.20 10^6/uL Hemoglobin 10.8 L 12.2-16.2 g/dL Hematocrit 33.0 L 36.0-46.0 % Mean Corpuscular Volume 76.7 L 80.0-100.0 fL Mean Corpuscular Hemoglobin 25.0 L 28.0-32.0 pg Mean Corpuscular Hemoglobin Concent 32.6 32.0-36.0 g/dL Red Cell Distribution Width 16.3 H 11.8-14.3 % Platelet Count 366 140-450 10^3/uL Mean Platelet Volume 7.7 6.9-10.8 fL Neutrophils (%) (Auto) 66.4 37.0-80.0 % Lymphocytes (%) (Auto) 25.3 10.0-50.0 % Monocytes (%) (Auto) 7.5 0.0-12.0 % Eosinophils (%) (Auto) 0.2 0.0-7.0 % Basophils (%) (Auto) 0.6 0.0-2.0 % Neutrophils # (Auto) 4.4 1.6-8.6 10 ^3/uL Lymphocytes # (Auto) 1.7 0.4-5.4 10 ^3/uL Monocytes # (Auto) 0.5 0-1.3 10 ^3/uL Eosinophils # (Auto) 0 0-0.8 10 ^3/uL Basophils # (Auto) 0 0-0.2 10 ^3/uL Nucleated Red Blood Cells 0.0 % Sodium Level 139 136-145 mmol/L Potassium Level 3.6 3.5-5.1 mmol/L Chloride Level 105 98-107 mmol/L Carbon Dioxide Level 26 20-31 mmol/L Anion Gap 8 5-15 Blood Urea Nitrogen 8 L 9-23 mg/dL Creatinine 0.69 0.550-1.02 mg/dL Glomerular Filtration Rate Calc 112 >90 mL/min BUN/Creatinine Ratio 11.6 10.0-20.0 Serum Glucose 100 74-106 mg/dL Calcium Level 9.6 8.7-10.4 mg/dL Total Bilirubin 0.3 0.2-1.0 mg/dL Aspartate Amino Transferase (AST) 13 13-40 U/L Alanine Aminotransferase (ALT) 12 7-40 U/L Alkaline Phosphatase 65 46-116 U/L Total Protein 8.2 5.7-8.2 g/dL Albumin 4.6 3.2-4.8 g/dL Lipase 36 12-53 U/L Plan 1. Intractable abdominal pain Monitor, GI consult, HIDA scan 2. Cholelithiasis Monitor, surgical consult 3. GERD Monitor, PPI Plan discussed with: Patient, Other DENI PONCE NP Oct 04, 2025 13:47
--- NOTE | 2025-10-04 16:17 | DVHCONRES ---
Family History: Arthritis G8 MOTHER G8 FATHER Diabetes mellitus G8 MOTHER FH: cancer G8 FATHER Hypercholesterolemia G8 MOTHER Allergies: Coded Allergies: Tramadol (Verified Allergy, Unknown, 07/14/25) Uncoded Allergies: peppers (Allergy, Intermediate, 07/27/21) hives NOVAGEN (Allergy, Unknown, 09/03/23) Home Meds Active Scripts Omeprazole (Omeprazole Dr) 20 Mg Cap, 20 MG PO DAILY, #60 CAP Prov:NAM WOLF MD 05/19/24 Pantoprazole Sodium Sesquihydr (Pantoprazole Sodium) 40 Mg Tab, 40 MG PO DAILY, #30 TAB Prov:MAGGIE MULLER MD 05/18/24 Reported Medications Magnesium Oxide (mg Supplement (Magnesium-Oxide) 400 Mg Tab, 1 TAB PO DAILY 10/04/25 Metoprolol Succinate (Metoprolol Succinate Er) 25 Mg Tab, 25 MG PO DAILY@LUNCH for 30 Days, MG 10/04/25 Ferrous Sulfate (Ferrous Sulfate) 325 Mg Tab, 325 MG PO TIDWM for ANEMAI for 30 Days 07/11/21 Current Medications Current Medications Medications (Trade) Dose Ordered Sig/Harpreet Route PRN Reason Start Time Stop Time Status Last Admin Sodium Chloride 1,000 ml @ 120 mls/hr Q8H20M IV 10/04/25 00:15 10/04/25 09:13 Acetaminophen (Tylenol Tablet) 325 mg Q4HP PRN PO MILD PAIN (1-3 PAIN SCALE) 10/04/25 00:15 Acetaminophen/ Hydrocodone Bitart ([place] 5/325MG Tab) 1 tab Q4HP PRN PO MODERATE PAIN (4-6 PAIN SCALE) 10/04/25 00:15 Ondansetron HCl (Zofran) 4 mg Q4HP PRN IV NAUSEA / VOMITING 10/04/25 00:15 10/04/25 09:14 Docusate Sodium (Colace Capsule) 100 mg BIDPRN PRN PO FOR CONSTIPATION 10/04/25 00:15 Morphine Sulfate 2 mg Q4HPRN PRN IV SEVERE PAIN (7-10 PAIN SCALE) 10/04/25 00:15 Nitroglycerin (Ntrostat Sublingual) 0.4 mg Q5MINP PRN SL FOR CHEST PAIN 10/04/25 00:15 Morphine Sulfate 2 mg Q30M PRN IV FOR CHEST PAIN 10/04/25 00:15 Pantoprazole Sodium (Protonix) 40 mg DAILY IV 10/05/25 10:00 Vital Signs Vital Signs Date Time Temp Pulse Resp B/P (MAP) Pulse Ox O2 Delivery O2 Flow Rate FiO2 10/04/25 13:00 98.6 80 16 105/73 (84) 100 98.6 10/04/25 08:00 Room Air* 0 21 Labs/Diagnostic Data Labs Test 10/04/25 13:58 10/03/25 19:40 10/03/25 18:19 Range/Units Beta HCG, Quantitative 0.7 L 1.5-4.2 mIU/mL Urine Color Colorless Yellow Urine Clarity Clear Clear Urine pH 6.0 5.0-9.0 Urine Specific [place] 1.005 1.001-1.035 Urine Protein Negative Negative Urine Ketones Negative Negative Urine Blood Trace H Negative /uL Urine Nitrite Negative Negative Urine Bilirubin Negative Negative Urine Urobilinogen Normal Negative mg/dL Urine Leukocyte Esterase Negative Negative /uL Urine RBC 1 0 - 4 /hpf Urine Microscopic WBC < 1 0-5 /HPF Urine Squamous Epithelial Cells Few <5 /hpf Urine Bacteria Few H None Seen /hpf Urine Glucose Normal Normal mg/dL White Blood Count 6.6 4.4-10.8 10^3/uL Red Blood Count 4.30 4.0-5.20 10^6/uL Hemoglobin 10.8 L 12.2-16.2 g/dL Hematocrit 33.0 L 36.0-46.0 % Mean Corpuscular Volume 76.7 L 80.0-100.0 fL Mean Corpuscular Hemoglobin 25.0 L 28.0-32.0 pg Mean Corpuscular Hemoglobin Concent 32.6 32.0-36.0 g/dL Red Cell Distribution Width 16.3 H 11.8-14.3 % Platelet Count 366 140-450 10^3/uL Mean Platelet Volume 7.7 6.9-10.8 fL Neutrophils (%) (Auto) 66.4 37.0-80.0 % Lymphocytes (%) (Auto) 25.3 10.0-50.0 % Monocytes (%) (Auto) 7.5 0.0-12.0 % Eosinophils (%) (Auto) 0.2 0.0-7.0 % Basophils (%) (Auto) 0.6 0.0-2.0 % Neutrophils # (Auto) 4.4 1.6-8.6 10 ^3/uL Lymphocytes # (Auto) 1.7 0.4-5.4 10 ^3/uL Monocytes # (Auto) 0.5 0-1.3 10 ^3/uL Eosinophils # (Auto) 0 0-0.8 10 ^3/uL Basophils # (Auto) 0 0-0.2 10 ^3/uL Nucleated Red Blood Cells 0.0 % Sodium Level 139 136-145 mmol/L Potassium Level 3.6 3.5-5.1 mmol/L Chloride Level 105 98-107 mmol/L Carbon Dioxide Level 26 20-31 mmol/L Anion Gap 8 5-15 Blood Urea Nitrogen 8 L 9-23 mg/dL Creatinine 0.69 0.550-1.02 mg/dL Glomerular Filtration Rate Calc 112 >90 mL/min BUN/Creatinine Ratio 11.6 10.0-20.0 Serum Glucose 100 74-106 mg/dL Calcium Level 9.6 8.7-10.4 mg/dL Total Bilirubin 0.3 0.2-1.0 mg/dL Aspartate Amino Transferase (AST) 13 13-40 U/L Alanine Aminotransferase (ALT) 12 7-40 U/L Alkaline Phosphatase 65 46-116 U/L Total Protein 8.2 5.7-8.2 g/dL Albumin 4.6 3.2-4.8 g/dL Lipase 36 12-53 U/L DONNY CORCORAN Oct 04, 2025 16:17
[2025-10-04 17:00] VITALS: BP 101/41; PULSE 74; RESP 18; TEMP 98.2; O2SAT 100
[2025-10-04] MEDS: PANTOPRAZOLE 40 MG/10 ML VIAL INJ IV ONE (17:21)
[2025-10-04 18:45] VITALS: BP 112/76; PULSE 80; RESP 18; TEMP 98.3; O2SAT 100
[2025-10-04 21:00] VITALS: BP 113/72; PULSE 72; RESP 18; TEMP 99; O2SAT 100
[2025-10-05 01:00] VITALS: BP 117/74; PULSE 68; RESP 18; TEMP 98.5; O2SAT 99
[2025-10-05 05:00] VITALS: BP 112/74; PULSE 68; RESP 18; TEMP 98.2; O2SAT 100
[2025-10-05 06:39] LABS: Hematocrit 29.0 % (36.0-46.0); Hemoglobin 9.6 g/dL (12.2-16.2); Mean Corpuscular Hemoglobin 25.6 pg (28.0-32.0); Mean Corpuscular Volume 77.0 fL (80.0-100.0); Nucleated Red Blood Cells % 0.0 %
[2025-10-05 06:59] LABS: Albumin 3.9 g/dL (3.2-4.8); Alkaline Phosphatase 57 U/L (46-116); Anion Gap 11 (5-15); BUN/Creatinine Ratio 10.1 (10.0-20.0); Calcium 8.8 mg/dL (8.7-10.4); Carbon Dioxide 23 mmol/L (20-31); Chloride 107 mmol/L (98-107); Glucose 76 mg/dL (74-106); Sodium 141 mmol/L (136-145); Total Protein 6.9 g/dL (5.7-8.2)
[2025-10-05 07:00] LABS: Bilirubin, Total 0.5 mg/dL (0.2-1.0)
[2025-10-05 07:03] LABS: Alanine Aminotransferase < 9 U/L (7-40); Blood Urea Nitrogen 7 mg/dL (9-23); Potassium 3.3 mmol/L (3.5-5.1)
[2025-10-05 09:03] VITALS: BP 106/70; PULSE 69; RESP 17; TEMP 98; O2SAT 98
[2025-10-05] MEDS: PANTOPRAZOLE 40 MG/10 ML VIAL INJ IV SCH (09:38)
--- NOTE | 2025-10-05 11:30 | DVH ---
PROCEDURE: NM NM HIDA SCAN Exam Date: 10/05/2025 09:42 AM CLINICAL HISTORY: r/o acute rina Comparison Study: 02/13/2024 Nuclear Medicine Hepatobiliary Scan. TECHNIQUE: Following the intravenous administration of 4.5 mCi of technetium 99m labeled Choletec multiple planar abdominal planar images were obtained in anterior projection in 1 minute intervals for 30 minutes . Right anterior, lateral images were obtained at 65 minutes after injection. Small bowel visualized at 20-30 minutes FINDINGS: The liver appears grossly normal in size. Gallbladder is faintly visualized at 30 minutes. At 65 minutes, the gallbladder is visualized. IMPRESSION: Patent cystic duct.
[2025-10-05 12:42] LABS: INR 1.14 (0.9-1.15); Partial Thromboplastin Time 30.0 SEC (24.5-34.5); Prothrombin Time 11.9 sec (9.3-11.8)
--- NOTE | 2025-10-05 13:03 | DVHPN2 ---
Progress Note - Dictate Date Seen: Oct 05, 2025 Medical Necessity Reason Pt with a Central, PICC or Fol: No vital signs Vital Sign Date Time Temp Pulse Resp B/P (MAP) Pulse Ox O2 Delivery O2 Flow Rate FiO2 10/05/25 09:03 98.0 69 17 106/70 (82) 98 98.0 10/05/25 07:41 Room Air* 0 21 Total Intake and Output 10/04/25 10/04/25 10/05/25 15:00 23:00 07:00 Intake Total 1000 ml Balance 1000 ml medications Current Medications Medications Dose Ordered Sig/Harpreet Route Start Time Stop Time Status Last Admin Dose Admin Sodium Chloride 1,000 ml @ 120 mls/hr Q8H20M IV 10/04/25 00:15 10/05/25 05:48 120 MLS/HR Acetaminophen 325 mg Q4HP PRN PO 10/04/25 00:15 Acetaminophen/ Hydrocodone Bitart 1 tab Q4HP PRN PO 10/04/25 00:15 Ondansetron HCl 4 mg Q4HP PRN IV 10/04/25 00:15 10/04/25 09:14 4 MG Docusate Sodium 100 mg BIDPRN PRN PO 10/04/25 00:15 Morphine Sulfate 2 mg Q4HPRN PRN IV 10/04/25 00:15 Nitroglycerin 0.4 mg Q5MINP PRN SL 10/04/25 00:15 Morphine Sulfate 2 mg Q30M PRN IV 10/04/25 00:15 Pantoprazole Sodium 40 mg DAILY IV 10/05/25 10:00 10/05/25 09:38 40 MG objective General Appearance: alert, no distress HEENT: EOMI, PERRLA, normal external inspect of ears, no icterus, no nasal drainage Neck: no carotid bruit, no jugular venous distention (JVD), no lymphadenopathy Chest: normal thorax Respiratory: clear to auscultation, normal air movement Cardiovascular: regular rate and rhythm, no diastolic murmur, no jugular venous distention (JVD), no rub, no systolic murmur Abdominal: soft, no hepatomegaly, no mass, no splenomegaly, no tenderness Musculoskeletal: no joint tenderness, no swelling Extremities: normal pulses, no calf tenderness, no clubbing, no cyanosis, no edema Skin: no bruising, no jaundice, no rash Neurological: alert, No focal deficit laboratory and microbiology Laboratory Tests 10/05/25 05:34 Test 10/05/25 05:34 Range/Units Serum Glucose 76 74-106 mg/dL Problem List 1. Intractable abdominal pain Monitor, GI consult, HIDA scan 2. Cholelithiasis Monitor, surgical consult 3. GERD Monitor, PPI Assessment/Plan Subjective Patient is awake and alert. Objective Patient was admitted for abdominal pain. Patient reports weight loss and severe pain after eating. Patient states she is only able to take clear liquids and salads. Patient has gallstones. Plan Surgical consult. Surgery is tentatively scheduled for tomorrow for laparoscopic cholecystectomy. Patient to be n.p.o. at midnight. Continue IV fluids. Plan discussed with: Patient, Other DENI PONCE NP Oct 05, 2025 13:03
[2025-10-05 13:57] VITALS: BP 119/78; PULSE 79; RESP 17; TEMP 97.1; O2SAT 100
--- NOTE | 2025-10-05 14:01 | DVH ---
CHEST RADIOGRAPH INDICATION: preop TECHNIQUE: Single frontal view of the chest was obtained COMPARISON: XY CHEST PORTABLE on DOS: 07/14/25, XY CHEST PORTABLE on DOS: 05/14/24, XY CHEST PORTABLE on DOS: 09/03/23 FINDINGS: Lines and Tubes: None Lungs: No focal consolidation. Pleura: No effusion. No pneumothorax. Cardiomediastinal contours: Unremarkable Bones: No acute osseous abnormality. IMPRESSION: 1. No acute cardiopulmonary disease.
[2025-10-05 14:04] LABS: Magnesium 2.0 mg/dL (1.6-2.6); Triglycerides 55.0 mg/dL (< 150)
[2025-10-05 14:06] LABS: Cholesterol 150.0 mg/dL (< 200); HDL Cholesterol 42.0 mg/dL (40-59)
--- NOTE | 2025-10-05 14:21 | DVHINCON2 ---
Date Seen: Oct 05, 2025 Referring Physician CHASE Etienne Reason for Consultation Cardiac risk stratification History of Present Illness This is a 39-year-old female patient who presents to emergency room with chief complaint of worsening abdominal pain. The patient reports that she has been experiencing abdominal pain for approximately one year. She states that the pain has been worse for the last three days prior to emergency room arrival. Cardiology has now been consulted for cardiac risk stratification. Imaging has revealed cholelithiasis. Initial twelve lead electrocardiogram found in patient's chart reveals normal sinus rhythm without any significant ST segment changes. The patient denies any cardiac symptoms including chest pain, palpitations, shortness of breath, or dizziness. Significant past medical history includes tachycardia (takes metoprolol), hypertension, and prediabetes. The patient states that she sees balance wheel facer in the outpatient setting. She reports undergoing a stress test in February 2025, which she reports was negative. She also reports a full cardiac workup including an echocardiogram, which she also states was normal. Past Medical History Past medical history reviewed. No other significant than mentioned above. Past Surgical History Denies Family History: Arthritis G8 MOTHER G8 FATHER Diabetes mellitus G8 MOTHER FH: cancer G8 FATHER Hypercholesterolemia G8 MOTHER Family History Family history reviewed. Social History Denies the use of tobacco, alcohol or illicit drugs. Allergies: Coded Allergies: Tramadol (Verified Allergy, Unknown, 07/14/25) Uncoded Allergies: peppers (Allergy, Intermediate, 07/27/21) hives NOVAGEN (Allergy, Unknown, 09/03/23) Home Meds Active Scripts Omeprazole (Omeprazole Dr) 20 Mg Cap, 20 MG PO DAILY, #60 CAP Prov:NAM WOLF MD 05/19/24 Pantoprazole Sodium Sesquihydr (Pantoprazole Sodium) 40 Mg Tab, 40 MG PO DAILY, #30 TAB Prov:MAGGIE MULLER MD 05/18/24 Reported Medications Magnesium Oxide (mg Supplement (Magnesium-Oxide) 400 Mg Tab, 1 TAB PO DAILY 10/04/25 Metoprolol Succinate (Metoprolol Succinate Er) 25 Mg Tab, 25 MG PO DAILY@LUNCH for 30 Days, MG 10/04/25 Ferrous Sulfate (Ferrous Sulfate) 325 Mg Tab, 325 MG PO TIDWM for ANEMAI for 30 Days 07/11/21 Home Meds Home medications reviewed. Current Medications Current Medications Medications (Trade) Dose Ordered Sig/Harpreet Route PRN Reason Start Time Stop Time Status Last Admin Pantoprazole Sodium (Protonix) 40 mg DAILY IV 10/05/25 10:00 10/05/25 09:38 Review of Systems Constitutional: No symptom reported Ears, Nose, & Throat: No symptom reported Eyes: No symptom reported Neurological: No symptoms reported Pulmonary/Respiratory: No symptoms reported Cardiovascular: No symptom reported Gastrointestinal: Right lower quadrant abdominal pain Genitourinary: No symptom reported Musculoskeletal: No symptom reported Skin: No symptom reported Psychiatric: No symptom reported Endocrine: No symptom reported Hematologic/Lymphatic: No symptom reported Vital Signs Vital Signs Date Time Temp Pulse Resp B/P (MAP) Pulse Ox O2 Delivery O2 Flow Rate FiO2 10/05/25 13:57 97.1 79 17 119/78 (92) 100 97.1 10/05/25 07:41 Room Air* 0 21 Physical Exam General Appearance: Cooperative. Well-developed. Well-nourished. No acute dist ress. Pulmonary/Respiratory: Clear, bilateral breaths sounds. Cardiovascular/Chest: Regular rate and rhythm. Peripheral Pulses: 2+ Radial (R). 2+ Radial (L). 2+ Pedal (R). 2+ Pedal (L) Abdominal Exam: Normal bowel sounds. Ankle Exam: Negative ankle edema Lower extremities: Negative lower extremity edema Neuro/Mental Status: A/OX4, coherent. Thoughts/Psych: Normal thought pattern. Appropriate mood and affect. Good judgment and insight. Appearance: No acute distress. Skin Exam: Normal inspection. Normal color. Warm and dry. Labs/Diagnostic Data Labs Test 10/05/25 12:08 10/05/25 05:34 10/04/25 13:58 10/03/25 19:40 Range/Units Prothrombin Time 11.9 H 9.3-11.8 sec Prothrombin Time INR 1.14 0.9-1.15 Activated Partial Thromboplast Time 30.0 24.5-34.5 SEC White Blood Count 4.5 # 4.4-10.8 10^3/uL Red Blood Count 3.77 L 4.0-5.20 10^6/uL Hemoglobin 9.6 L 12.2-16.2 g/dL Hematocrit 29.0 #L 36.0-46.0 % Mean Corpuscular Volume 77.0 L 80.0-100.0 fL Mean Corpuscular Hemoglobin 25.6 L 28.0-32.0 pg Mean Corpuscular Hemoglobin Concent 33.2 32.0-36.0 g/dL Red Cell Distribution Width 16.2 H 11.8-14.3 % Platelet Count 276 140-450 10^3/uL Mean Platelet Volume 7.9 6.9-10.8 fL Neutrophils (%) (Auto) 57.7 37.0-80.0 % Lymphocytes (%) (Auto) 29.6 10.0-50.0 % Monocytes (%) (Auto) 11.5 0.0-12.0 % Eosinophils (%) (Auto) 0.7 0.0-7.0 % Basophils (%) (Auto) 0.5 0.0-2.0 % Neutrophils # (Auto) 2.6 1.6-8.6 10 ^3/uL Lymphocytes # (Auto) 1.3 0.4-5.4 10 ^3/uL Monocytes # (Auto) 0.5 0-1.3 10 ^3/uL Eosinophils # (Auto) 0 0-0.8 10 ^3/uL Basophils # (Auto) 0 0-0.2 10 ^3/uL Nucleated Red Blood Cells 0.0 % Sodium Level 141 136-145 mmol/L Potassium Level 3.3 L 3.5-5.1 mmol/L Chloride Level 107 98-107 mmol/L Carbon Dioxide Level 23 20-31 mmol/L Anion Gap 11 5-15 Blood Urea Nitrogen 7 L 9-23 mg/dL Creatinine 0.69 0.550-1.02 mg/dL Glomerular Filtration Rate Calc 112 >90 mL/min BUN/Creatinine Ratio 10.1 10.0-20.0 Serum Glucose 76 74-106 mg/dL Hemoglobin A1c 5.6 <5.7 % A1C Calcium Level 8.8 8.7-10.4 mg/dL Magnesium Level 2.0 1.6-2.6 mg/dL Total Bilirubin 0.5 0.2-1.0 mg/dL Aspartate Amino Transferase (AST) 15 13-40 U/L Alanine Aminotransferase (ALT) < 9 7-40 U/L Alkaline Phosphatase 57 46-116 U/L Total Protein 6.9 5.7-8.2 g/dL Albumin 3.9 3.2-4.8 g/dL Triglycerides Level 55 < 150 mg/dL Cholesterol Level 150 < 200 mg/dL LDL Cholesterol 104 H < 100 mg/dL HDL Cholesterol 42 40-59 mg/dL Beta HCG, Quantitative 0.7 L 1.5-4.2 mIU/mL Urine Color Colorless Yellow Urine Clarity Clear Clear Urine pH 6.0 5.0-9.0 Urine Specific [place] 1.005 1.001-1.035 Urine Protein Negative Negative Urine Ketones Negative Negative Urine Blood Trace H Negative /uL Urine Nitrite Negative Negative Urine Bilirubin Negative Negative Urine Urobilinogen Normal Negative mg/dL Urine Leukocyte Esterase Negative Negative /uL Urine RBC 1 0 - 4 /hpf Urine Microscopic WBC < 1 0-5 /HPF Urine Squamous Epithelial Cells Few <5 /hpf Urine Bacteria Few H None Seen /hpf Urine Glucose Normal Normal mg/dL Test 10/03/25 18:19 Range/Units Lipase 36 12-53 U/L Assessment Preprocedural cardiovascular examination Hypertension History of tachycardia Cholelithiasis Acute anemia Hypokalemia Hx of prediabetes Plan/Recommendation We will continue with the following plan/recommendations (Dr. Mcneil): A transthoracic echocardiogram reveals an EF of 60%. Revised Cardiac Risk Index (Pietro criteria): 0 points (0.5% risk of major cardiac event). The patient has no cardiac contraindications to proceed with the procedure. Cardiac symptoms have been ruled out. There is no underlying history of congestive heart failure, coronary artery disease, or equivalent of cardiac symptoms. The patient reports a good functional capacity prior to admission. Per cardiology standpoint, patient is at an acceptable-risk for moderate-risk surgery. There is no additional cardiac work-up indicated prior to surgery. If patient requires further cardiology assessment/recommendations, please consult patient's primary balance wheel facer . Thank you for allowing us to participate in this patient's care. Please call if you have any questions or concerns. Critical care time spent: 44 minutes This medical document was created using an electronic medical record system with voice recognition software and computerized dictation system. Although this document has been carefully reviewed, there might still be some phonetic and typographical errors. Occasional wrong-word or ``sound-alike substitutions may have occurred due to the inherent limitations of voice recognition software. These areas are purely typographical due to imperfections of the software programs and do not reflect any compromise in the patient's medical care. Please read the chart carefully and recognize, using context, where these substitutions have occurred. Plan discussed with: Patient NYHA Physical activity limitations: NA Date of Service: Oct 05, 2025 Billing Provider: MOSES RUSSO Cardiology Common Codes: 21192-[id number] INP/OBS CARE (High) Cardiology Consultation Codes: [id number] CONSULT <45MIN MOSES RUSSO Oct 05, 2025 14:21
--- NOTE | 2025-10-05 14:29 | DVHCONRES ---
Date Seen: Oct 05, 2025 Resident Creating Document: DONNY CORCORAN RESIDENT History of Present Illness Reason for Consult: Abdominal pain, gallbladder disease HPI: 39-year-old female with past medical history of tachycardia (on beta-maddie, followed by cardiology), hypertension, and anemia, admitted for intractable abdominal pain. She reports a one-year history of intermittent biliary colic. Prior surgical evaluation recommended cholecystectomy. During this admission, RUQ ultrasound demonstrated cholelithiasis without gallbladder wall thickening or biliary ductal dilation. HIDA scan showed patent cystic duct with delayed gallbladder visualization, consistent with symptomatic gallbladder disease without acute cholecystitis. No fevers, leukocytosis, or biochemical evidence of infection. Cardiology evaluated and cleared the patient for surgery. Planned for cholecystectomy tomorrow. PMHx: Hypertension, tachycardia, anemia PSHx: None Medications: Home beta-maddie, antihypertensives, iron supplement, pantoprazole, PRN antiemetics and analgesics Allergies: Novagen, tramadol, peppers Social History: Denies tobacco, alcohol, or illicit drug use ROS: Negative except as noted in HPI Family History: Arthritis G8 MOTHER G8 FATHER Diabetes mellitus G8 MOTHER FH: cancer G8 FATHER Hypercholesterolemia G8 MOTHER Allergies: Coded Allergies: Tramadol (Verified Allergy, Unknown, 07/14/25) Uncoded Allergies: peppers (Allergy, Intermediate, 07/27/21) hives NOVAGEN (Allergy, Unknown, 09/03/23) Home Meds Active Scripts Omeprazole (Omeprazole Dr) 20 Mg Cap, 20 MG PO DAILY, #60 CAP Prov:NAM WOLF MD 05/19/24 Pantoprazole Sodium Sesquihydr (Pantoprazole Sodium) 40 Mg Tab, 40 MG PO DAILY, #30 TAB Prov:MAGGIE MULLER MD 05/18/24 Reported Medications Magnesium Oxide (mg Supplement (Magnesium-Oxide) 400 Mg Tab, 1 TAB PO DAILY 10/04/25 Metoprolol Succinate (Metoprolol Succinate Er) 25 Mg Tab, 25 MG PO DAILY@LUNCH for 30 Days, MG 10/04/25 Ferrous Sulfate (Ferrous Sulfate) 325 Mg Tab, 325 MG PO TIDWM for ANEMAI for 30 Days 07/11/21 Current Medications Current Medications Medications (Trade) Dose Ordered Sig/Harpreet Route PRN Reason Start Time Stop Time Status Last Admin Pantoprazole Sodium (Protonix) 40 mg DAILY IV 10/05/25 10:00 10/05/25 09:38 Vital Signs Vital Signs Date Time Temp Pulse Resp B/P (MAP) Pulse Ox O2 Delivery O2 Flow Rate FiO2 10/05/25 13:57 97.1 79 17 119/78 (92) 100 97.1 10/05/25 07:41 Room Air* 0 21 Physical Exam Vitals stable General: alert, no acute distress Abdomen: soft, nondistended, RUQ tenderness, no rebound or guarding, no jaundice Other systems unremarkable Labs/Diagnostic Data Labs Test 10/05/25 12:08 10/05/25 05:34 10/04/25 13:58 10/03/25 19:40 Range/Units Prothrombin Time 11.9 H 9.3-11.8 sec Prothrombin Time INR 1.14 0.9-1.15 Activated Partial Thromboplast Time 30.0 24.5-34.5 SEC White Blood Count 4.5 # 4.4-10.8 10^3/uL Red Blood Count 3.77 L 4.0-5.20 10^6/uL Hemoglobin 9.6 L 12.2-16.2 g/dL Hematocrit 29.0 #L 36.0-46.0 % Mean Corpuscular Volume 77.0 L 80.0-100.0 fL Mean Corpuscular Hemoglobin 25.6 L 28.0-32.0 pg Mean Corpuscular Hemoglobin Concent 33.2 32.0-36.0 g/dL Red Cell Distribution Width 16.2 H 11.8-14.3 % Platelet Count 276 140-450 10^3/uL Mean Platelet Volume 7.9 6.9-10.8 fL Neutrophils (%) (Auto) 57.7 37.0-80.0 % Lymphocytes (%) (Auto) 29.6 10.0-50.0 % Monocytes (%) (Auto) 11.5 0.0-12.0 % Eosinophils (%) (Auto) 0.7 0.0-7.0 % Basophils (%) (Auto) 0.5 0.0-2.0 % Neutrophils # (Auto) 2.6 1.6-8.6 10 ^3/uL Lymphocytes # (Auto) 1.3 0.4-5.4 10 ^3/uL Monocytes # (Auto) 0.5 0-1.3 10 ^3/uL Eosinophils # (Auto) 0 0-0.8 10 ^3/uL Basophils # (Auto) 0 0-0.2 10 ^3/uL Nucleated Red Blood Cells 0.0 % Sodium Level 141 136-145 mmol/L Potassium Level 3.3 L 3.5-5.1 mmol/L Chloride Level 107 98-107 mmol/L Carbon Dioxide Level 23 20-31 mmol/L Anion Gap 11 5-15 Blood Urea Nitrogen 7 L 9-23 mg/dL Creatinine 0.69 0.550-1.02 mg/dL Glomerular Filtration Rate Calc 112 >90 mL/min BUN/Creatinine Ratio 10.1 10.0-20.0 Serum Glucose 76 74-106 mg/dL Hemoglobin A1c 5.6 <5.7 % A1C Calcium Level 8.8 8.7-10.4 mg/dL Magnesium Level 2.0 1.6-2.6 mg/dL Total Bilirubin 0.5 0.2-1.0 mg/dL Aspartate Amino Transferase (AST) 15 13-40 U/L Alanine Aminotransferase (ALT) < 9 7-40 U/L Alkaline Phosphatase 57 46-116 U/L Total Protein 6.9 5.7-8.2 g/dL Albumin 3.9 3.2-4.8 g/dL Triglycerides Level 55 < 150 mg/dL Cholesterol Level 150 < 200 mg/dL LDL Cholesterol 104 H < 100 mg/dL HDL Cholesterol 42 40-59 mg/dL Thyroid Stimulating Hormone (TSH) 1.97 0.55-4.78 uIU/mL Beta HCG, Quantitative 0.7 L 1.5-4.2 mIU/mL Urine Color Colorless Yellow Urine Clarity Clear Clear Urine pH 6.0 5.0-9.0 Urine Specific [place] 1.005 1.001-1.035 Urine Protein Negative Negative Urine Ketones Negative Negative Urine Blood Trace H Negative /uL Urine Nitrite Negative Negative Urine Bilirubin Negative Negative Urine Urobilinogen Normal Negative mg/dL Urine Leukocyte Esterase Negative Negative /uL Urine RBC 1 0 - 4 /hpf Urine Microscopic WBC < 1 0-5 /HPF Urine Squamous Epithelial Cells Few <5 /hpf Urine Bacteria Few H None Seen /hpf Urine Glucose Normal Normal mg/dL Test 10/03/25 18:19 Range/Units Lipase 36 12-53 U/L Assessment #Symptomatic cholelithiasis Diet: low-fat diet, NPO after midnight BM regimen: stool softener PRN while receiving opioids Antibiotics: not indicated at this time due to absence of infection Procedure: proceed with planned laparoscopic cholecystectomy per surgery; GI agrees no further endoscopic intervention indicated pre-op Case discussed with Dr Martinez Plan discussed with: Patient, Other (rn) DONNY CORCORAN RESIDENT Oct 05, 2025 14:29
[2025-10-05] MEDS: POTASSIUM CHL 20 Meq TABLET PO ONE (16:04)
[2025-10-05] MEDS: ACETAMINOPHEN 325 MG TAB PO PRN (16:04)
[2025-10-05 17:04] VITALS: BP 118/85; PULSE 87; RESP 17; TEMP 98.1; O2SAT 99
--- NOTE | 2025-10-05 19:08 | DVHSR ---
APPROVED REPORT EXAM: Two-dimensional and M-mode echocardiogram with Doppler and color Doppler. Blood Pressure: 119/78 mmHg INDICATION Pre-Op Evaluate cardiac function RISK FACTORS Height: 5' 5", Weight: 151 DIMENSIONS LVDd 4.5 (3.8-5.7cm) LA (2D) 3.4 (1.9-4.0cm) Aortic Root 3.1 (2.0-3.7cm) LVDs 3.2 (2.5-4.0cm) LA (MM) (1.9-4.0cm) Aortic Cusp Exc 1.8 (1.5-2.0cm) EF (%) 55.0 (55-70%) Rt. Atrium 3.7 (1.9-4.0cm) Asc. Aorta cm IVSd 0.8 (0.7-1.1cm) RV (D) (1.8-2.4cm) PWd 1.0 (0.7-1.1cm) Mitral Valve Mitral Mitral Stenosis E wave 0.60m/s MV Mean GR. mmHg A wave 0.60m/s MV Peak GR. mmHg E/A ratio 1.0 2D MVA cm2 Aortic Valve Aortic Valve Aortic Stenosis V1 1.00m/s AO Mean GR. 4mmHg V2 1.30m/s AO Peak GR. 7mmHg LVOT Diameter 1.9 (1.8-2.4cm) Doppler RENAE 2.18cm2 Conclusion Technically good study. Sinus rhythm. Normal chamber sizes. Normal valves. EF of 60% with normal RV function. Dopplers unremarkable. No pericardial effusion masses or vegetations.
[2025-10-05 21:00] VITALS: BP 117/69; PULSE 62; RESP 17; TEMP 97.9; O2SAT 100
[2025-10-06] VITALS (8 sets, daily range): BP systolic 105–141; BP diastolic 62–85; PULSE 67–88; RESP 12–19; TEMP 97.4–98.3; O2SAT 97–100
--- NOTE | 2025-10-06 09:21 | ECG ---
[facility] Test Date: 2025-10-04 Test Time: 15:10:32 Pat Name: DONNY GARDNER Department: Room: 0214 B Gender: F Corset Maker: : [id number] Requested By: MOSES RUSSO Order Number: [id number] Reading MD: Davey Mcneil Measurements Intervals [place] Rate: 84 P: 78 MD: 142 QRS: 19 QRSD: 68 T: 39 QT: 378 QTc: 446 Interpretive Statements Normal sinus rhythm Electronically Signed On 10-06-2025 17:27:53 PST by Davey Mcneil Please click the below link to view image of tracing.
--- NOTE | 2025-10-06 10:28 | DVHPN2 ---
Progress Note Date Seen: Oct 06, 2025 Resident Creating Document: DONNY CORCORAN RESIDENT Medical Necessity Reason Pt with a Central, PICC or Fol: No Subjective Review of Systems 39-year-old female with past medical history of tachycardia (on beta-maddie, followed by cardiology), hypertension, and anemia, admitted for intractable abdominal pain. She reports a one-year history of intermittent biliary colic. Prior surgical evaluation recommended cholecystectomy. During this admission, RUQ ultrasound demonstrated cholelithiasis without gallbladder wall thickening or biliary ductal dilation. HIDA scan showed patent cystic duct with delayed gallbladder visualization, consistent with symptomatic gallbladder disease without acute cholecystitis. No fevers, leukocytosis, or biochemical evidence of infection. Cardiology evaluated and cleared the patient for surgery. Planned for cholecystectomy 10/06/25: NPO, no acute complaints, waiting for surgery. Objective vital signs Vital Sign Date Time Temp Pulse Resp B/P (MAP) Pulse Ox O2 Delivery O2 Flow Rate FiO2 10/06/25 08:38 98.1 80 17 119/76 (90) 99 98.1 10/06/25 08:00 Room Air* 0 21 Total Intake and Output 10/05/25 10/05/25 10/06/25 15:00 23:00 07:00 Intake Total 400 ml 180 ml Balance 400 ml 180 ml medications Current Medications Medications Dose Ordered Sig/Harpreet Route Start Time Stop Time Status Last Admin Dose Admin Sodium Chloride 1,000 ml @ 120 mls/hr Q8H20M IV 10/04/25 00:15 10/06/25 00:44 120 MLS/HR Acetaminophen 325 mg Q4HP PRN PO 10/04/25 00:15 10/05/25 16:04 325 MG Acetaminophen/ Hydrocodone Bitart 1 tab Q4HP PRN PO 10/04/25 00:15 Ondansetron HCl 4 mg Q4HP PRN IV 10/04/25 00:15 10/04/25 09:14 4 MG Docusate Sodium 100 mg BIDPRN PRN PO 10/04/25 00:15 Morphine Sulfate 2 mg Q4HPRN PRN IV 10/04/25 00:15 Nitroglycerin 0.4 mg Q5MINP PRN SL 10/04/25 00:15 Morphine Sulfate 2 mg Q30M PRN IV 10/04/25 00:15 Pantoprazole Sodium 40 mg DAILY IV 10/05/25 10:00 10/05/25 09:38 40 MG Examination General: alert, no acute distress Abdomen: soft, nondistended, RUQ tenderness, no rebound or guarding, no jaundice Other systems unremarkable laboratory and microbiology Laboratory Tests 10/05/25 05:34 Test 10/05/25 05:34 Range/Units Serum Glucose 76 74-106 mg/dL Problem List/Assessment/Plan Problem List/Assessment/Plan #Symptomatic cholelithiasis Diet: low-fat diet, NPO BM regimen: stool softener PRN while receiving opioids Antibiotics: not indicated at this time due to absence of infection Procedure: proceed with planned laparoscopic cholecystectomy per surgery; GI agrees no further endoscopic intervention indicated pre-op Case discussed with Dr Martinez Plan discussed with: Patient, Other (rn) DONNY CORCORAN RESIDENT Oct 06, 2025 10:28
[2025-10-06] MEDS ORDERED: HYDROmorphone HCL 2 MG/ML VL/or syr IV PRN (10:45)
[2025-10-06] MEDS ORDERED: MORPHINE SULFATE 4 MG/ML SYR/VIAL IV PRN ×2 (10:45→11:00)
[2025-10-06] MEDS: KETOROLAC TROMETH 30 MG/ML 1ML VIAL IV ONE (10:45)
[2025-10-06] MEDS ORDERED: MORPHINE SULFATE INJ 2 MG/ml SYRG IV PRN (10:45)
[2025-10-06] MEDS ORDERED: ROCURONIUM 10MG/ML 10ML VIAL IV ONE (10:51)
[2025-10-06] MEDS ORDERED: MIDAZOLAM HCL 2MG/2ML 2ml VIAL (1mg/ml) ONE (10:51)
[2025-10-06] MEDS ORDERED: LIDOCAINE HCL 2% TOP JELLY 5ML TOP ONE (10:51)
[2025-10-06] MEDS ORDERED: LIDOCAINE 1% INJ PF 5ML AMP ONE (10:51)
[2025-10-06] MEDS ORDERED: MEPERIDINE HCL (25 MG/ML) 1ML VIAL ONE (10:51)
[2025-10-06] MEDS ORDERED: ONDANSETRON HCL 4 MG/2 ML VIAL ONE (10:51)
[2025-10-06] MEDS ORDERED: KETAMINE 50mg/ML 1ml syringe ONE (10:51)
[2025-10-06] MEDS ORDERED: SODIUM CHLORIDE LOCK 10 ML ONE (10:51)
[2025-10-06] MEDS ORDERED: PROPOFOL 10 MG/ML 20 ML IV ONE (10:51)
[2025-10-06] MEDS ORDERED: fentaNYL CITRATE 100 MCG/2 ML VL ONE (10:51)
[2025-10-06] MEDS: ceFAZolin 2 GM/D5W50ml 50 ML IV ONE (11:23)
--- NOTE | 2025-10-06 11:34 | DVHPN2 ---
Progress Note - Dictate Date Seen: Oct 06, 2025 Medical Necessity Reason Pt with a Central, PICC or Fol: No vital signs Vital Sign Date Time Temp Pulse Resp B/P (MAP) Pulse Ox O2 Delivery O2 Flow Rate FiO2 10/06/25 08:38 98.1 80 17 119/76 (90) 99 98.1 10/06/25 08:00 Room Air* 0 21 Total Intake and Output 10/05/25 10/05/25 10/06/25 15:00 23:00 07:00 Intake Total 400 ml 180 ml Balance 400 ml 180 ml medications Current Medications Medications Dose Ordered Sig/Harpreet Route Start Time Stop Time Status Last Admin Dose Admin Sodium Chloride 1,000 ml @ 120 mls/hr Q8H20M IV 10/04/25 00:15 10/06/25 00:44 120 MLS/HR Acetaminophen 325 mg Q4HP PRN PO 10/04/25 00:15 10/05/25 16:04 325 MG Acetaminophen/ Hydrocodone Bitart 1 tab Q4HP PRN PO 10/04/25 00:15 Hold Ondansetron HCl 4 mg Q4HP PRN IV 10/04/25 00:15 10/04/25 09:14 4 MG Docusate Sodium 100 mg BIDPRN PRN PO 10/04/25 00:15 Morphine Sulfate 2 mg Q4HPRN PRN IV 10/04/25 00:15 Cancel Nitroglycerin 0.4 mg Q5MINP PRN SL 10/04/25 00:15 Morphine Sulfate 2 mg Q30M PRN IV 10/04/25 00:15 Pantoprazole Sodium 40 mg DAILY IV 10/05/25 10:00 10/05/25 09:38 40 MG Morphine Sulfate 2 mg Q4H PRN IV 10/06/25 10:45 10/06/25 14:46 Cancel Morphine Sulfate 1 mg Q30M PRN IV 10/06/25 10:45 10/06/25 12:46 Morphine Sulfate 2 mg Q4HPRN PRN IV 10/06/25 11:00 objective General Appearance: alert, no distress HEENT: EOMI, PERRLA, normal external inspect of ears, no icterus, no nasal drainage Neck: no carotid bruit, no jugular venous distention (JVD), no lymphadenopathy Chest: normal thorax Respiratory: clear to auscultation, normal air movement Cardiovascular: regular rate and rhythm, no diastolic murmur, no jugular venous distention (JVD), no rub, no systolic murmur Abdominal: soft, no hepatomegaly, no mass, no splenomegaly, no tenderness Musculoskeletal: no joint tenderness, no swelling Extremities: normal pulses, no calf tenderness, no clubbing, no cyanosis, no edema Skin: no bruising, no jaundice, no rash Neurological: alert, No focal deficit laboratory and microbiology Laboratory Tests 10/05/25 05:34 Test 10/05/25 05:34 Range/Units Serum Glucose 76 74-106 mg/dL Problem List 1. Intractable abdominal pain Monitor, GI consult, HIDA scan 2. Cholelithiasis Monitor, surgical consult 3. GERD Monitor, PPI Assessment/Plan Subjective Patient was not in room during assessment Objective Patient was taken down for laparoscopic cholecystectomy by general surgery. Patient was admitted for symptomatic gallbladder without signs of acute cholecystitis. Patient states that she has had significant weight loss in the past year and has only been able to hold down clear liquids and solids. Patient to have a scheduled lap rina today. Plan General Surgery recommendations appreciated. Possible DC plan for tomorrow. Plan discussed with: Patient, Other DENI PONCE NP Oct 06, 2025 11:34
[2025-10-06] MEDS: LIDOCAINE 1%-Mpf/Epinephrine 1:200,000 30ml VIAL ONE (11:42)
[2025-10-06] MEDS: BUPIVACAINE 0.25% INJ 50ML VIAL ONE (11:42)
[2025-10-06] MEDS ORDERED: SUGAMMADEX 200mg/2ml Vial (100MG/ML) IV ONE (12:04)
--- NOTE | 2025-10-06 12:48 | DVHOP ---
DATE OF SURGERY: 10/06/2025 PREOPERATIVE DIAGNOSES: * Cholelithiasis. * Cholecystitis. POSTOPERATIVE DIAGNOSES: * Cholelithiasis. * Cholecystitis. SURGEON: Naresh Pastor MD [employer] WORKER: Travon Etienne NP ANESTHESIA: General endotracheal. ANESTHESIOLOGIST: Dr. Griffiths. PROCEDURES: * Laparoscopy. * Laparoscopic cholecystectomy DESCRIPTION OF PROCEDURE: Under general endotracheal anesthesia, with the patient's skin prepped and draped, supraumbilical incision was made and Veress needle inserted by the hanging drop technique to establish pneumoperitoneum to 15 mmHg pressure by insufflation with carbon dioxide. With the abdomen fully distended, the needle was removed and replaced with a 5-mm trocar port through which a 0-degree viewing laparoscope was inserted and under direct vision, an additional 5-mm port was inserted through the anterior axillary line at the level of the umbilicus on the right side of the patient's body and a subxiphoid midline. A 10-mm port was inserted. Instrumentation was then introduced. Laparoscopy was conducted. There was no evidence of any unexpected pathology on the serosal surfaces visualized. The gallbladder was affected by chronic and acute cholecystitis. It was placed on tension. The cystic duct contained an impacted stone. The cystic duct was dilated. It was traced to the confluence with the gallbladder and then traced into the hepatocystic triangle so as to minimize the potential for inadvertent injury to the common bile duct. The cystic duct and cystic artery were circumferentially dissected, skeletonized, and traced into the hepatocystic triangle. Cystic duct and cystic artery were then divided between metallic clips. Following division of these structures, the gallbladder was resected from its liver bed by electrocautery and traction. The fully mobilized gallbladder was placed into the specimen extraction bag, which was withdrawn from the peritoneal cavity through the 10-mm subxiphoid port site. The right upper quadrant was profusely irrigated. Irrigant was aspirated. Hemostasis was meticulously inspected and found to be complete. At the termination of the procedure, there was no evidence of bleeding from either the port sites or from the liver bed of the gallbladder. Instrumentation was withdrawn. Pneumoperitoneum was evacuated. Fascia defect closed using 0 Vicryl. Wounds were approximated using Monocryl sutures, Dermabond, glue, and Steri-Strips. The patient remained stable throughout the procedure, left the operating room following an accurate needle and sponge count. There were no family members in the waiting room. No one answered the phone number given. Naresh Pastor MD PF/MILE TID: [id number] RECEIPT: [id number]
[2025-10-06] MEDS: HYDROmorphone HCL 2 MG/ML VL/or syr IV PRN (13:01)
[2025-10-06] MEDS: METOCLOPRAMIDE HCL 5MG/ml INJ 2ml VIAL IV PRN (13:01)
[2025-10-06] MEDS: ceFAZolin 1GM/50ML 50 ML IV SCH (16:09)
[2025-10-06] MEDS: HYDROcodone-ACET 5/325MG TAB PO PRN (16:59)
[2025-10-07] VITALS (7 sets, daily range): BP systolic 110–119; BP diastolic 71–81; PULSE 74–88; RESP 16–20; TEMP 98.4–99; O2SAT 97–99
[2025-10-07 07:01] LABS: Hemoglobin 9.5 g/dL (12.2-16.2); Mean Corpuscular Volume 77.7 fL (80.0-100.0)
[2025-10-07 07:03] LABS: Hematocrit 28.8 % (36.0-46.0); Mean Corpuscular Hemoglobin 25.6 pg (28.0-32.0); Nucleated Red Blood Cells % 0.1 %
--- NOTE | 2025-10-07 09:30 | DVHPN2 ---
Subjective Date Seen: Oct 07, 2025 Post op day Post op day: 1 Patient reports: No new complaints Nursing reports: No new complaints General: Normal HNT: Normal Cardiovascular: Normal Respiratory: Normal Gastrointestinal: Normal Genitourinary: Normal Musculoskeletal: Normal Objective Vitals Vital Sign Date Time Temp Pulse Resp B/P (MAP) Pulse Ox O2 Delivery O2 Flow Rate FiO2 10/07/25 08:43 99.0 76 18 112/71 (85) 98 99.0 10/07/25 08:05 Room Air* 0 21 Total Intake and Output 10/06/25 10/06/25 10/07/25 15:00 23:00 07:00 Intake Total 50 ml 150 ml 1830 ml Balance 50 ml 150 ml 1830 ml Medications Current Medications Medications Dose Ordered Sig/Harpreet Route Start Time Stop Time Status Last Admin Dose Admin Sodium Chloride 1,000 ml @ 120 mls/hr Q8H20M IV 10/04/25 00:15 10/07/25 02:53 120 MLS/HR Acetaminophen 325 mg Q4HP PRN PO 10/04/25 00:15 10/05/25 16:04 325 MG Acetaminophen/ Hydrocodone Bitart 1 tab Q4HP PRN PO 10/04/25 00:15 10/07/25 05:32 1 TAB Ondansetron HCl 4 mg Q4HP PRN IV 10/04/25 00:15 10/06/25 18:42 4 MG Docusate Sodium 100 mg BIDPRN PRN PO 10/04/25 00:15 Morphine Sulfate 2 mg Q4HPRN PRN IV 10/04/25 00:15 Cancel Nitroglycerin 0.4 mg Q5MINP PRN SL 10/04/25 00:15 Morphine Sulfate 2 mg Q30M PRN IV 10/04/25 00:15 Pantoprazole Sodium 40 mg DAILY IV 10/05/25 10:00 10/05/25 09:38 40 MG Morphine Sulfate 2 mg Q4H PRN IV 10/06/25 10:45 10/06/25 14:46 Cancel Morphine Sulfate 2 mg Q4HPRN PRN IV 10/06/25 11:00 Metronidazole 100 ml @ 100 mls/hr Q8HR IV 10/06/25 14:00 10/07/25 06:26 100 MLS/HR Cefazolin Sodium 50 ml @ 100 mls/hr Q8HR IV 10/06/25 14:00 10/07/25 05:33 100 MLS/HR General: Normal Head/Eyes: Normal ENT: Normal Neck: Normal Lungs: Normal Cardiovascular: Normal, Regular rate and rhythm Abdominal: Normal Labs and Microbiology Laboratory Tests 10/07/25 05:45 10/05/25 05:34 Test 10/05/25 05:34 Range/Units Serum Glucose 76 74-106 mg/dL Ass/Plan Problem List #Symptomatic cholelithiasis Diet: low-fat diet, NPO BM regimen: stool softener PRN while receiving opioids Antibiotics: not indicated at this time due to absence of infection Procedure: proceed with planned laparoscopic cholecystectomy per surgery; GI agrees no further endoscopic intervention indicated pre-op Case discussed with Dr Martinez Assessment/Plan patient complaint of dizziness she would like to stay an additional day abdomen soft non distended, appropriately tender passing gas labs reviewed Plan: ok to discharge in 24 hours advance diet as tolerated patient to follow up in surgery clinic in 2 weeks may shower in 72 hours Plan discussed with patient, Dr. Pastor Visit Coding Surgery Date of Service if different f: Oct 07, 2025 Billing Provider: ROMEO PASTOR MD Surgery Visit Codes: [id number] INP/OBS CARE(HIGH) MELVIN CERDA NP Oct 07, 2025 09:30
--- NOTE | 2025-10-07 11:29 | DVHPN2 ---
Progress Note Date Seen: Oct 07, 2025 Resident Creating Document: DONNY CORCORAN RESIDENT Medical Necessity Reason Pt with a Central, PICC or Fol: No Subjective Review of Systems 39-year-old female with past medical history of tachycardia (on beta-maddie, followed by cardiology), hypertension, and anemia, admitted for intractable abdominal pain. She reports a one-year history of intermittent biliary colic. Prior surgical evaluation recommended cholecystectomy. During this admission, RUQ ultrasound demonstrated cholelithiasis without gallbladder wall thickening or biliary ductal dilation. HIDA scan showed patent cystic duct with delayed gallbladder visualization, consistent with symptomatic gallbladder disease without acute cholecystitis. No fevers, leukocytosis, or biochemical evidence of infection. Cardiology evaluated and cleared the patient for surgery. Planned for cholecystectomy 10/06/25: NPO, no acute complaints, waiting for surgery. 10/07/25: sp cholecystectomy, no complications, passing flatus, tolerating liquid diet Objective vital signs Vital Sign Date Time Temp Pulse Resp B/P (MAP) Pulse Ox O2 Delivery O2 Flow Rate FiO2 10/07/25 08:43 99.0 76 18 112/71 (85) 98 99.0 10/07/25 08:05 Room Air* 0 21 Total Intake and Output 10/06/25 10/06/25 10/07/25 15:00 23:00 07:00 Intake Total 50 ml 150 ml 1830 ml Balance 50 ml 150 ml 1830 ml medications Current Medications Medications Dose Ordered Sig/Harpreet Route Start Time Stop Time Status Last Admin Dose Admin Sodium Chloride 1,000 ml @ 120 mls/hr Q8H20M IV 10/04/25 00:15 10/07/25 02:53 120 MLS/HR Acetaminophen 325 mg Q4HP PRN PO 10/04/25 00:15 10/05/25 16:04 325 MG Acetaminophen/ Hydrocodone Bitart 1 tab Q4HP PRN PO 10/04/25 00:15 10/07/25 05:32 1 TAB Ondansetron HCl 4 mg Q4HP PRN IV 10/04/25 00:15 10/06/25 18:42 4 MG Docusate Sodium 100 mg BIDPRN PRN PO 10/04/25 00:15 Morphine Sulfate 2 mg Q4HPRN PRN IV 10/04/25 00:15 Cancel Nitroglycerin 0.4 mg Q5MINP PRN SL 10/04/25 00:15 Morphine Sulfate 2 mg Q30M PRN IV 10/04/25 00:15 Pantoprazole Sodium 40 mg DAILY IV 10/05/25 10:00 10/07/25 10:08 40 MG Morphine Sulfate 2 mg Q4H PRN IV 10/06/25 10:45 10/06/25 14:46 Cancel Morphine Sulfate 2 mg Q4HPRN PRN IV 10/06/25 11:00 Metronidazole 100 ml @ 100 mls/hr Q8HR IV 10/06/25 14:00 10/07/25 06:26 100 MLS/HR Cefazolin Sodium 50 ml @ 100 mls/hr Q8HR IV 10/06/25 14:00 10/07/25 05:33 100 MLS/HR Examination General: alert, no acute distress Abdomen: soft, surgical wounds clean Other systems unremarkable laboratory and microbiology Laboratory Tests 10/07/25 05:45 10/05/25 05:34 Test 10/05/25 05:34 Range/Units Serum Glucose 76 74-106 mg/dL Problem List/Assessment/Plan Problem List/Assessment/Plan #sp cholecystectomy #Symptomatic cholelithiasis Diet: advance as tolerated Antibiotics: not indicated at this time due to absence of infection DC planned for tomorrow: normal post op Case discussed with Dr Martinez Plan discussed with: Patient DONNY CORCORAN RESIDENT Oct 07, 2025 11:29
[2025-10-07 12:08] LABS: Hematocrit 28.9 % (36.0-46.0); Hemoglobin 9.4 g/dL (12.2-16.2); Mean Corpuscular Hemoglobin 25.7 pg (28.0-32.0); Mean Corpuscular Volume 78.9 fL (80.0-100.0); Nucleated Red Blood Cells % 0.0 %
[2025-10-07 12:22] LABS: Albumin 3.8 g/dL (3.2-4.8); Alkaline Phosphatase 58 U/L (46-116); Anion Gap 11 (5-15); Bilirubin, Total 0.5 mg/dL (0.2-1.0); Carbon Dioxide 23 mmol/L (20-31); Glucose 86 mg/dL (74-106); Sodium 143 mmol/L (136-145); Total Protein 6.7 g/dL (5.7-8.2)
[2025-10-07 12:24] LABS: Alanine Aminotransferase 58 U/L (7-40); BUN/Creatinine Ratio 7.8 (10.0-20.0); Blood Urea Nitrogen < 5 mg/dL (9-23); Calcium 8.6 mg/dL (8.7-10.4); Chloride 109 mmol/L (98-107); Potassium 3.1 mmol/L (3.5-5.1)
--- NOTE | 2025-10-07 16:09 | DVHPN2 ---
Progress Note Date Seen: Oct 07, 2025 Medical Necessity Reason Pt with a Central, PICC or Fol: No Subjective Review of Systems: CVS:Normal, RESPIRATORY:Normal, GI:Normal Objective vital signs Vital Sign Date Time Temp Pulse Resp B/P (MAP) Pulse Ox O2 Delivery O2 Flow Rate FiO2 10/07/25 12:55 99.0 74 20 116/81 (93) 98 99.0 10/07/25 08:05 Room Air* 0 21 Total Intake and Output 10/06/25 10/06/25 10/07/25 15:00 23:00 07:00 Intake Total 50 ml 150 ml 1830 ml Balance 50 ml 150 ml 1830 ml medications Current Medications Medications Dose Ordered Sig/Harpreet Route Start Time Stop Time Status Last Admin Dose Admin Sodium Chloride 1,000 ml @ 120 mls/hr Q8H20M IV 10/04/25 00:15 10/07/25 13:33 120 MLS/HR Acetaminophen 325 mg Q4HP PRN PO 10/04/25 00:15 10/05/25 16:04 325 MG Acetaminophen/ Hydrocodone Bitart 1 tab Q4HP PRN PO 10/04/25 00:15 10/07/25 11:31 1 TAB Ondansetron HCl 4 mg Q4HP PRN IV 10/04/25 00:15 10/06/25 18:42 4 MG Docusate Sodium 100 mg BIDPRN PRN PO 10/04/25 00:15 Morphine Sulfate 2 mg Q4HPRN PRN IV 10/04/25 00:15 Cancel Nitroglycerin 0.4 mg Q5MINP PRN SL 10/04/25 00:15 Morphine Sulfate 2 mg Q30M PRN IV 10/04/25 00:15 Pantoprazole Sodium 40 mg DAILY IV 10/05/25 10:00 10/07/25 10:08 40 MG Morphine Sulfate 2 mg Q4H PRN IV 10/06/25 10:45 10/06/25 14:46 Cancel Morphine Sulfate 2 mg Q4HPRN PRN IV 10/06/25 11:00 Metronidazole 100 ml @ 100 mls/hr Q8HR IV 10/06/25 14:00 10/07/25 13:39 100 MLS/HR Cefazolin Sodium 50 ml @ 100 mls/hr Q8HR IV 10/06/25 14:00 10/07/25 13:35 100 MLS/HR Examination: GENERAL:Normal, LUNGS:Normal, CVS:Normal, ABDOMEN:Normal, SKIN:Normal, NEURO:Normal laboratory and microbiology Laboratory Tests 10/07/25 11:40 Test 10/07/25 11:40 Range/Units Serum Glucose 86 74-106 mg/dL Labs and/or images reviewed: Labs reviewed by me, Image(s) reviewed by me Problem List/Assessment/Plan Problem List/Assessment/Plan 1. Intractable abdominal pain Monitor, GI consult, HIDA scan 2. Cholelithiasis Monitor, surgical consult 3. GERD Monitor, PPI Assessment/Plan Subjective Patient was not in room during assessment Objective Patient was taken down for laparoscopic cholecystectomy by general surgery. Patient was admitted for symptomatic gallbladder without signs of acute cholecystitis. Patient states that she has had significant weight loss in the past year and has only been able to hold down clear liquids and solids. Patient is S/P cholecystectomy, she continues to report some dizziness. We will monitor overnight and possible discharge tomorrow Plan General Surgery recommendations appreciated. Possible DC plan for tomorrow. Plan discussed with: Patient Date of Service: Oct 07, 2025 Billing Provider: JHON BORGES MD Common Visit Codes: [id number] INP/OBS CARE (MOD) SANDY BENITO WOOL CLASSER Oct 07, 2025 16:09
[2025-10-07] MEDS: POTASSIUM CHLORIDE 20 MEQ, LIDOCAINE 1% (LOCAL ANESTH.) 2 ML in SODIUM CHL 0.9% 100 ML IV ONE (16:15)
[2025-10-07] MEDS: POTASSIUM EFFERVESENT TAB 25 MEQ PO ONE (16:16)
[2025-10-07] MEDS ORDERED: SUCCINYLCHOLINE 20mg/ml 100mg/5ml SYRINGE IV ONE (18:52)
[2025-10-08 01:00] VITALS: BP 111/75; PULSE 73; RESP 16; TEMP 97.7; O2SAT 97
[2025-10-08 05:12] VITALS: BP 118/78; PULSE 74; RESP 18; TEMP 97.8; O2SAT 98
[2025-10-08 08:15] LABS: Nucleated Red Blood Cells % 0.0 %
[2025-10-08 08:17] LABS: Hematocrit 29.7 % (36.0-46.0); Hemoglobin 9.6 g/dL (12.2-16.2); Mean Corpuscular Hemoglobin 25.2 pg (28.0-32.0); Mean Corpuscular Volume 77.5 fL (80.0-100.0)
[2025-10-08 08:50] LABS: Alkaline Phosphatase 59 U/L (46-116); BUN/Creatinine Ratio 9.4 (10.0-20.0); Calcium 9.0 mg/dL (8.7-10.4); Chloride 104 mmol/L (98-107); Glucose 76 mg/dL (74-106); Total Protein 6.9 g/dL (5.7-8.2)
[2025-10-08 08:51] LABS: Albumin 3.9 g/dL (3.2-4.8)
[2025-10-08 08:52] LABS: Bilirubin, Total 0.4 mg/dL (0.2-1.0)
[2025-10-08 08:54] LABS: Carbon Dioxide 25 mmol/L (20-31)
[2025-10-08 08:59] LABS: Alanine Aminotransferase 44 U/L (7-40); Blood Urea Nitrogen 6 mg/dL (9-23); Potassium 3.3 mmol/L (3.5-5.1)
[2025-10-08 09:00] VITALS: BP 111/78; PULSE 91; RESP 18; TEMP 97.8; O2SAT 97
[2025-10-08 09:00] LABS: Anion Gap 13 (5-15); Sodium 142 mmol/L (136-145)
--- NOTE | 2025-10-08 10:13 | ECG ---
[facility] Test Date: 2025-10-05 Test Time: 15:04:10 Pat Name: DONNY GARDNER Department: Respiratoy Room: 0214 B Gender: F [employer] Developer: : 1985 Requested By: DENI PONCE Order Number: [id number] Reading MD: Davey Mcneil Measurements Intervals [place] Rate: 80 P: 49 RI: 140 QRS: 15 QRSD: 80 T: 24 QT: 395 QTc: 456 Interpretive Statements Sinus rhythm Abnormal R-wave progression, early transition Abnormal T, consider ischemia, anterior leads Electronically Signed On 10-10-2025 15:15:52 PST by Davey Mcneil Please click the below link to view image of tracing.
[2025-10-08] MEDS: POTASSIUM EFFERVESENT TAB 25 MEQ PO ONE (10:32)
[2025-10-08] MEDS: DOCUSATE SOD 100 MG CAP PO PRN (11:36)
[2025-10-08 11:53] VITALS: BP 111/78; PULSE 91; RESP 18; TEMP 97.8; O2SAT 97
--- NOTE | 2025-10-08 14:33 | DVHDS2 ---
Discharge Summary Date of Admission Oct 04, 2025 at 00:09 Date of Discharge: Oct 08, 2025 Admitting Diagnosis abdominal pain Labs/Diagnostic Data: Laboratory Results Test 10/08/25 07:30 10/05/25 12:08 10/05/25 05:34 10/04/25 13:58 White Blood Count 5.4 10^3/uL (4.4-10.8) Red Blood Count 3.83 10^6/uL (4.0-5.20) Hemoglobin 9.6 g/dL (12.2-16.2) Hematocrit 29.7 % (36.0-46.0) Mean Corpuscular Volume 77.5 fL (80.0-100.0) Mean Corpuscular Hemoglobin 25.2 pg (28.0-32.0) Mean Corpuscular Hemoglobin Concent 32.5 g/dL (32.0-36.0) Red Cell Distribution Width 16.4 % (11.8-14.3) Platelet Count 286 10^3/uL (140-450) Mean Platelet Volume 7.6 fL (6.9-10.8) Neutrophils (%) (Auto) 71.3 % (37.0-80.0) Lymphocytes (%) (Auto) 19.5 % (10.0-50.0) Monocytes (%) (Auto) 8.3 % (0.0-12.0) Eosinophils (%) (Auto) 0.6 % (0.0-7.0) Basophils (%) (Auto) 0.3 % (0.0-2.0) Neutrophils # (Auto) 3.9 10 ^3/uL (1.6-8.6) Lymphocytes # (Auto) 1.1 10 ^3/uL (0.4-5.4) Monocytes # (Auto) 0.5 10 ^3/uL (0-1.3) Eosinophils # (Auto) 0 10 ^3/uL (0-0.8) Basophils # (Auto) 0 10 ^3/uL (0-0.2) Nucleated Red Blood Cells 0.0 % Sodium Level 142 mmol/L (136-145) Potassium Level 3.3 mmol/L (3.5-5.1) Chloride Level 104 mmol/L (98-107) Carbon Dioxide Level 25 mmol/L (20-31) Anion Gap 13 (5-15) Blood Urea Nitrogen 6 mg/dL (9-23) Creatinine 0.64 mg/dL (0.550-1.02) Glomerular Filtration Rate Calc 115 mL/min (>90) BUN/Creatinine Ratio 9.4 (10.0-20.0) Serum Glucose 76 mg/dL (74-106) Calcium Level 9.0 mg/dL (8.7-10.4) Total Bilirubin 0.4 mg/dL (0.2-1.0) Aspartate Amino Transferase (AST) 27 U/L (13-40) Alanine Aminotransferase (ALT) 44 U/L (7-40) Alkaline Phosphatase 59 U/L (46-116) Total Protein 6.9 g/dL (5.7-8.2) Albumin 3.9 g/dL (3.2-4.8) Prothrombin Time 11.9 sec (9.3-11.8) Prothrombin Time INR 1.14 (0.9-1.15) Activated Partial Thromboplast Time 30.0 SEC (24.5-34.5) Hemoglobin A1c 5.6 % A1C (<5.7) Magnesium Level 2.0 mg/dL (1.6-2.6) Triglycerides Level 55 mg/dL (< 150) Cholesterol Level 150 mg/dL (< 200) LDL Cholesterol 104 mg/dL (< 100) HDL Cholesterol 42 mg/dL (40-59) Thyroid Stimulating Hormone (TSH) 1.97 uIU/mL (0.55-4.78) Beta HCG, Quantitative 0.7 mIU/mL (1.5-4.2) Test 10/03/25 19:40 10/03/25 18:19 Urine Color Colorless (Yellow) Urine Clarity Clear (Clear) Urine pH 6.0 (5.0-9.0) Urine Specific [place] 1.005 (1.001-1.035) Urine Protein Negative (Negative) Urine Ketones Negative (Negative) Urine Blood Trace /uL (Negative) Urine Nitrite Negative (Negative) Urine Bilirubin Negative (Negative) Urine Urobilinogen Normal mg/dL (Negative) Urine Leukocyte Esterase Negative /uL (Negative) Urine RBC 1 /hpf (0 - 4) Urine Microscopic WBC < 1 /HPF (0-5) Urine Squamous Epithelial Cells Few /hpf (<5) Urine Bacteria Few /hpf (None Seen) Urine Glucose Normal mg/dL (Normal) Lipase 36 U/L (12-53) Other Laboratory Tests 10/08/25 07:30 Brief Hx & Hospital Course: The patient was admitted for intractable abdominal pain secondary to cholelithiasis. During hospitalization, the patient was evaluated by general surgery and underwent an uncomplicated cholecystectomy performed by Dr. Porras. Postoperatively, the patients pain significantly improved, diet was gradually advanced, and the patient was able to tolerate oral intake without difficulty. The patient remained hemodynamically stable with no postoperative complications. The patient was cleared by surgery for discharge and is medically stable for discharge home. The patient is instructed to follow up with their primary care provider within one week of discharge and to follow postoperative instructions as provided by the surgical team. Condition at Discharge: Fair Final Diagnosis/Problems List 1. Intractable abdominal pain 2. Cholelithiasis s/p cholecystectomy 3. GERD Discharge Disposition: Home Discharge Instruct/Medications Diet: Cardiac 2g Na,low cholest Activity: No Restrictions, As Tolerated Scheduled Ferrous Sulfate (Ferrous Sulfate), 325 MG PO TIDWM, (Reported) Magnesium Oxide (mg Supplement (Magnesium-Oxide), 1 TAB PO DAILY, (Reported) Metoprolol Succinate (Metoprolol Succinate Er), 25 MG PO DAILY@LUNCH, (Reported) Omeprazole (Omeprazole Dr), 20 MG PO DAILY Pantoprazole Sodium Sesquihydr (Pantoprazole Sodium), 40 MG PO DAILY Discharge Statement: "Patient was advised to return to the ER or call 911 if any headaches, dizziness, shortness of breath, chest pain, abdominal pain, bleeding, fevers, or worsening of medical condition. Patient was counseled about treatment plan, medications, possible side effects, patientverbalized understanding. All questions were answered to the best of my ability. This discharge took greater then 30 minutes in planning, reviewing documentation, counseling the patient, and discussing with other team members." ASSESSMENT ASSESSMENT Assessment 1. Intractable abdominal pain 2. Cholelithiasis s/p cholecystectomy 3. GERD SANDY BENITO Oct 08, 2025 14:33
== END 2025-10-08 13:00 | disposition home or self-care (01) | DRG 263 ==
LOC: ER 17:53 → OVERFLOW 10-04 00:09 → CENTRAL 10-04 18:32
PROVIDERS: ADMIT Nurse Practitioner; ATTEND Nurse Practitioner
PROC: 0FT44ZZ Resection of Gallbladder, Percutaneous Endoscopic Approach (ICD-10-PCS; principal; 2025-10-06 11:23)
DX: K80.12 Calculus of gallbladder with acute and chronic cholecystitis without obstruction (principal); D64.9 Anemia, unspecified; I10 Essential (primary) hypertension; K21.9 Gastro-esophageal reflux disease without esophagitis; E87.6 Hypokalemia; R73.03 Prediabetes; Z88.5 Allergy status to narcotic agent; Z83.3 Family history of diabetes mellitus; Z82.61 Family history of arthritis; Z80.9 Family history of malignant neoplasm, unspecified; Z83.42 Family history of familial hypercholesterolemia
CPT/HCPCS: 36415; 71045; 76705; 78226; 80053; 80061; 81001; 82247; 83036; 83690; 83735; 84443; 84702; 85025; 85610; 85730; 86850; 86900; 86901; 93005; 93306; 96374; 96375; G0378; J1885; J2003; J2250; J2405; J2470; J2704; J3490